=== PATIENT | female | born 1940 | race African-American/Black ===

== ENCOUNTER 2016-08-16 17:42 | Inpatient (IN) | payer OTHER ==
[2016-08-16] MEDS ORDERED: LOVENOX SUBQ SCH (18:15)
[2016-08-16] MEDS ORDERED: HUMULIN R IV ONE (18:24)
[2016-08-16] MEDS ORDERED: NS 1,000 ML IV SCH (18:30)
[2016-08-16 18:37] LABS: ALLEN TEST NO; BE -24.3 mmoll (-3.0-3.0); BLOOD TYPE ARTERIAL; DRAW SITE L BRACHIAL; METHB 1.8 % (0.0-1.5); O2(CT) 15.7 mL/dL (15.0-23.0); PO2(98.6) 239 mmHg (60-100); SAMPLE BLOOD; SAO2 100.1 % (95.0-100.0); THB 11.1 g/dL (11.5-17.4)
[2016-08-16 18:39] LABS: pH(98.6) 7.03 (7.35-7.45)
[2016-08-16 18:40] LABS: MODALITY VENTIMASK; PCO2(98.6) 18 mmHg (35-45)
[2016-08-16 19:00] LABS: BASO% 0.1 % (0.0-0.8); HEMATOCRIT 37.1 % (37.0-47.0); IMM GRAN# 0.14 X1000 (0.0-0.04); IMM GRAN% 0.9 % (0.0-0.5); LYMPH# 0.95 X1000 (1.2-3.4); LYMPH% 6.1 % (20.5-51.1); MANUAL DIFF NEEDED? YES; MCH 28.6 PG (27-31); MCHC 29.6 g/dL (33-37); MCV 96.4 FL (81-99); MONO# 0.75 X1000 (0.11-0.59); MONO% 4.8 % (1.7-9.3); MPV 11.3 FL (7.4-10.4); NEUT% 88.1 % (42.2-75.2); PLT 237 X1000 (130-400); RBC 3.85 XMIL (4.2-5.4)
[2016-08-16] MEDS ORDERED: VANCOMYCIN IV PER PHARMACY MISC SCH (19:00)
[2016-08-16] MEDS ORDERED: D50W SYRINGE IV PRN (19:04)
[2016-08-16] MEDS ORDERED: ZOFRAN PO PRN (19:04)
[2016-08-16] MEDS ORDERED: SODIUM BICARBONATE 8.4% 50 MEQ in D5W 250 ML IV PRN (19:04)
[2016-08-16] MEDS ORDERED: POTASSIUM CHLORIDE 20 MEQ in NS 100 ML IV PRN (19:04)
[2016-08-16] MEDS ORDERED: NS + KCL 20 MEQ 1,000 ML IV SCH (19:04)
[2016-08-16] MEDS ORDERED: POTASSIUM CHLORIDE 40 MEQ in NS 250 ML IV PRN (19:04)
[2016-08-16] MEDS ORDERED: SODIUM BICARBONATE 8.4% 100 MEQ in D5W 500 ML IV PRN (19:04)
[2016-08-16 19:20] LABS: BANDS 16 % (0-1); LYMPHS 4 % (21-51); MONO 4 % (1-9)
[2016-08-16 19:36] LABS: ALBUMIN 3.3 g/dL (3.5-5.0); ALKALINE PHOSPHATASE 109 U/L (32-104); DIRECT BILIRUBIN < 0.20 mg/dL (0.00-0.20); GOT 56 U/L (10-30); GPT 34 U/L (10-36); TOTAL BILIRUBIN 0.23 mg/dL (0.20-1.00); TOTAL PROTEIN 5.9 g/dL (6.3-8.3)
[2016-08-16 19:39] LABS: ALBUMIN 3.2 g/dL (3.5-5.0); MAGNESIUM 3.4 mg/dL (1.5-2.7); POTASSIUM 3.9 mmol/L (3.5-5.1); TOTAL BILIRUBIN 0.22 mg/dL (0.20-1.00); TOTAL PROTEIN 6.1 g/dL (6.3-8.3)
[2016-08-16] MEDS: LOVENOX SUBQ SCH (19:44)
[2016-08-16] MEDS: NS 1,000 ML IV SCH ×3 (19:46→21:34)
[2016-08-16] MEDS: HUMULIN R 100 UNIT in NS 99 ML IV SCH (19:46)
[2016-08-16] MEDS: PROTONIX IV SCH (19:52)
[2016-08-16] MEDS: SODIUM CHLORIDE 0.9% INJ SCH (19:52)
[2016-08-16] MEDS: 1/2 NS 1,000 ML IV SCH (19:53)
--- NOTE | 2016-08-16 20:12 | HISTORY AND PHYSICAL ---
PRIMARY CARE PHYSICIAN: Rosie Ferguson MD PRESENTING COMPLAINT: Altered mental status. HISTORY OF PRESENTING COMPLAINT: Ms. Pabon is a 76-year-old female with a history of diabetes, hypertension, dyslipidemia, questionable heart attack in the past who was transferred from [facility] to [facility] after she presented over there with altered mentation. According to the daughter, she tried multiple times to reach her mom today, but it was futile, so she went to the house to look for her at about 2 p.m. today. Upon arrival she saw her on the ground and she was unresponsive, but she had a gurgling sound in her throat. According to her, one of the eyes was open, the other one was closed and the patient would not respond to her so she called 911. The patient was sent to [facility] where she was found to have very high sugar. They tried to resuscitate her with fluids and the family requested that they transfer her to [facility] for higher care. Upon talking to the daughter, she said recently the mother has not been very consistent with her medications. PAST MEDICAL HISTORY: 1. Diabetes mellitus. 2. Hypertension. 3. Previous questionable NM. 4. Cardiomegaly. 5. Right lymphedema. MEDICATIONS AT HOME: The daughter is not 100% sure. She will bring the list. ALLERGIES: Questionable to penicillins. PAST SURGICAL HISTORY: 1. Positive for right breast, total hysterectomy with lymph node resection. 2. Hysterectomy. 3. Right knee surgery. FAMILY HISTORY: Positive for diabetes, hypertension. SOCIAL HISTORY: Patient lives by herself. Pretty functional until all this happened. Denies any smoking or alcohol. PHYSICAL EXAMINATION: VITAL SIGNS: We do not have any charted yet, but on the monitor, the blood pressure was about 140/110. Pulse of 84. Respiration was 24. Temperature not yet known. GENERAL: Ms. Pabon is a 76-year-old female. She was in bed. Seems to be in mild distress. HEENT: Mucosa is extremely dry. Anicteric and acyanotic. NECK: Supple. No JVD. Air entry is bilaterally reduced. A few bibasilar crepitations. Regular rate and rhythm. No murmurs, no rubs. No gallops. ABDOMEN: Soft. No hepatosplenomegaly. Bowel sounds were present. There is an old infraumbilical surgical scar. EXTREMITIES: No pedal edema. Distal pulses were present. [employer]: Patient is obtunded, but she is able to respond appropriately to painful stimuli. Continues to be nonverbal. Reflexes seem to be okay. LABORATORY DATA: We are still pending the labs from here. So far the pH is 7.3. PCO2 is 18. PaO2 is 239. This is on Ventimask at FiO2 of 50%. Briefly, the labs from the other facility shows WBC of about 16, hemoglobin of 15. Platelet was 237,000. Sodium was about 139, potassium was 5.9. There was a high anion gap acidosis. An EKG that we did over here shows normal sinus rhythm with tall complexes in the lateral leads with some T-wave inversion consistent with probably left ventricle hypertrophy. ASSESSMENT: Ms. Pabon is a 76-year-old female who was found by her daughter on the floor after multiple attempts to reach her on the phone, was sent to [facility], was found to have extremely elevated blood glucose and was in diabetic ketoacidosis. Upon family request was transferred here for higher care. ASSESSMENT: 1. Altered mental status secondary to metabolic encephalopathy. 2. Diabetic ketoacidosis. 3. Severe dehydration. 4. High anion gap metabolic acidosis likely due to diabetic ketoacidosis. 5. Hypertension. 6. Dyslipidemia. 7. Diabetic ophthalmopathy (retinopathy). 8. Morbid obesity. PLAN: 1. We are going to continue the patient in the ICU. Continue with the diabetic ketoacidosis protocol. We will do blood culture and urine culture. The report from [facility] was the computed tomography scan of the head which was done was unremarkable for anything acute. We would therefore not repeat it. However, if patient mentation does not improve after all the electrolytes and metabolic derangement have been corrected, we will go ahead and rescan the brain. 2. We will do blood cultures and urine cultures. For now, I would cover the patient with broad- spectrum antibiotics, at least for a few days until we know what is going on otherwise. 3. We will use Lovenox for deep venous thrombosis prophylaxis, and we will also use pantoprazole for gastrointestinal prophylaxis. 4. The patient's blood pressure was a little high. We would use hydralazine 10 mg IV q.6 p.r.n. for blood pressure control until we are able to utilize the enteral route. I have discussed this plan entirely with the family member, the daughter who was there as well as the other sister of the patient who was there. We spoke briefly on resuscitation status. At this point, the daughter wants everything to be done, including intubation and chest compression. Until further discussion is held with them, patient continues to be full code. MTDD
[2016-08-16 20:20] LABS: URINE MICRO REVIEW NEEDED? NO; URINE SOURCE CATH
[2016-08-16 20:23] LABS: BILIRUBIN URINE NEGATIVE (NEGATIVE); BLOOD URINE LARGE (NEGATIVE); COLOR STRAW; GLUCOSE URINE >1000 mg/dL (NEGATIVE); LEUKOCYTES URINE NEGATIVE (NEGATIVE); NITRITE URINE NEGATIVE (NEGATIVE); PROTEIN URINE 30 mg/dL (NEGATIVE); TURBIDITY URINE CLEAR (CLEAR); UR EPITHELIAL CELLS <10 /HPF (<10); URINE BACTERIA NEGATIVE /HPF; URINE RBC <10 /HPF (<10); URINE WBC <10 /HPF (<10); UROBILINOGEN URINE NORMAL (NORMAL)
[2016-08-16] MEDS: D5 NS + KCL 20 MEQ 1,000 ML IV SCH (20:24)
[2016-08-16] MEDS: D5 NS 1,000 ML IV SCH (20:25)
[2016-08-16] MEDS ORDERED: ZOSYN 2.25 GM/NS 50 ML IV SCH (21:00)
[2016-08-16] MEDS: LEVAQUIN 250 MG/D5W 50 ML IV SCH (21:07)
[2016-08-16] MEDS: MONISTAT-7 VAG CREAM VAG SCH (21:11)
[2016-08-16 21:36] LABS: CALCIUM 8.9 mg/dL (8.8-10.2); MAGNESIUM 3.1 mg/dL (1.5-2.7); POTASSIUM 3.2 mmol/L (3.5-5.1)
[2016-08-16] MEDS: MYCAMINE 100 MG in NS 100 ML IV SCH (22:13)
[2016-08-16] MEDS ORDERED: VANCOMYCIN 1.5 GM in NS 250 ML IV ONE (23:00)
[2016-08-17] MEDS: HUMULIN R 100 UNIT in NS 99 ML IV SCH ×3 (01:09→08:37)
[2016-08-17 02:33] LABS: CALCIUM 9.4 mg/dL (8.8-10.2); POTASSIUM 3.3 mmol/L (3.5-5.1)
[2016-08-17 02:59] LABS: ALLEN TEST YES; BE -12.8 mmoll (-3.0-3.0); BLOOD TYPE ARTERIAL; DRAW SITE R RADIAL; METHB 1.6 % (0.0-1.5); O2(CT) 15.4 mL/dL (15.0-23.0); PCO2(98.6) 34 mmHg (35-45); PO2(98.6) 195 mmHg (60-100); SAMPLE BLOOD; SAO2 99.9 % (95.0-100.0); pH(98.6) 7.22 (7.35-7.45)
[2016-08-17 03:00] LABS: MODALITY VENTIMASK
[2016-08-17] MEDS: D5 NS + KCL 20 MEQ 1,000 ML IV SCH ×3 (04:03→18:36)
[2016-08-17] MEDS: D5 NS 1,000 ML IV SCH ×3 (04:03→18:37)
[2016-08-17] MEDS: 1/2 NS 1,000 ML IV SCH ×3 (04:03→18:36)
--- NOTE | 2016-08-17 05:40 | EKG Report ---
Test Performed on : 08/16/2016 7:25:00 PM Test Reason : dka Blood Pressure : / mmHG Vent. Rate : 091 BPM Atrial Rate : 091 BPM P-R Int : 128 ms QRS Dur : 082 ms QT Int : 396 ms P-R-T Axes : 000 014 247 degrees QTc Int : 487 ms Sinus rhythm. with occasional premature ventricular complexes. ST & T wave abnormality, consider inferolateral ischemia Abnormal ECG When compared with ECG of 16-MAY-2016 17:16, premature ventricular complexes. are now present Inverted T waves have replaced nonspecific T wave abnormality in Inferior leads Inverted T waves have replaced nonspecific T wave abnormality in Lateral leads QT has lengthened Confirmed by Henrik Gooden MD ([id number]) on 08/17/2016 10:22:28 AM
[2016-08-17] MEDS ORDERED: 1/2 NS 1,000 ML IV SCH (06:15)
[2016-08-17 07:19] LABS: HDL 25 mg/dL (45-65); LDL 129 mg/dL; TRIGLYCERIDES 225 mg/dL (35-135); VLDL 45 mg/dL
[2016-08-17 07:24] LABS: HEMOGLOBIN A1C 11.9 % (4.8-6.0)
--- NOTE | 2016-08-17 07:33 | Diag Imaging Result Document ---
PROCEDURE NAME: CHEST-PORTABLE - 08/16/2016 PORTABLE UPRIGHT CHEST: COMPARISON: Compared to 05/16/2016. FINDINGS: No change in the left-sided [id number]. Heart remains prominent. The vessels are not distended. The lungs are well expanded. There are scattered granuloma. No pleural effusions identified. No consolidation. IMPRESSION: Stable chest. [facility]
[2016-08-17 08:24] LABS: CALCIUM 9.8 mg/dL (8.8-10.2); MAGNESIUM 2.7 mg/dL (1.5-2.7); POTASSIUM 3.8 mmol/L (3.5-5.1)
[2016-08-17] MEDS ORDERED: SODIUM PHOSPHATE 30 MMOL in D5W 250 ML IV PRN (08:36)
[2016-08-17] MEDS ORDERED: MAXIPIME 1 GM/NS 50 ML IV ONE (08:49)
[2016-08-17] MEDS ORDERED: POTASSIUM CHLORIDE 20 MEQ in 1/2 NS 1,000 ML IV SCH (08:49)
[2016-08-17] MEDS ORDERED: 1/2 NS ONE (09:09)
[2016-08-17] MEDS ORDERED: D5 ONE (09:09)
[2016-08-17 09:12] LABS: CALCIUM 9.6 mg/dL (8.8-10.2); POTASSIUM 3.8 mmol/L (3.5-5.1)
[2016-08-17] MEDS: D5 1/2 NS 1,000 ML IV SCH ×4 (10:00→22:19)
--- NOTE | 2016-08-17 10:17 | Diag Imaging Result Document ---
PROCEDURE NAME: ABDOMEN/PELVIS W/O CONTRAST - 08/17/2016 CT ABDOMEN AND PELVIS: A CT dose reduction protocol was used. COMPARISON: 12/20/2012. FINDINGS: There is substantial dependent atelectasis in the lung bases. There are also scattered calcified granulomas. 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 No pericardial effusion. The heterogeneous density partially cystic mass in the right upper quadrant has enlarged since prior. This now measures 5.9 x 7.6 cm in AP and lateral dimensions, previously measuring about 4.9 x 5.6. This is adjacent to the pancreatic head just anterior to the descending duodenum. Stable cholecystectomy changes. No dilation of the biliary collecting ducts or main pancreatic duct. Matute catheter in the urinary bladder. Rectum demonstrates some mild stool impaction. There are only a few diverticula of the sigmoid colon. No bowel obstruction or inflammation. There is some nonspecific retroperitoneal fluid, particularly at the left anterior pararenal space. No renal stones or urinary obstruction. Severe degenerative changes of the spine and pelvis. No acute or suspicious bony lesions. IMPRESSION: 1. Enlarging right upper quadrant retroperitoneal mass. This remains indeterminate. 2. Mild rectal stool impaction. Diverticulosis coli. 3. Trace retroperitoneal free fluid about the left kidney, nonspecific. [facility]
--- NOTE | 2016-08-17 11:10 | PROGRESS NOTE ---
DATE: 08/17/2016 SUBJECTIVE: Today, Ms. Pabon looks a little bit better than yesterday. She is focalizing more. Still continues to be obtunded. She keeps groaning but no sensible speech. PHYSICAL EXAMINATION: Vital Signs: Her blood pressure is 138/80, pulse of 107 , respirations 12, temperature is 97.7 degrees. General Examination: Ms. Pabon is a 76-year-old , female. She was in bed. She did not seem to be in any distress. HEENT: Mucosa continues to be dry. Anicteric and acyanotic. Neck: Supple. Lungs: Good air entry bilaterally. No crepitations. No rhonchi. Cardiovascular: Regular rate and rhythm. Chest: There is a port on the left upper chest wall. Extremities: No pedal edema. Abdomen: Soft. The patient groans when you touch the abdomen. Not quite sure or if she is hurting. Neurologic: Patient is alert but continues to be confused. She is nonverbal. She makes some non- comprehensive sounds. She is able to move all her extremities upon painful stimuli. She is also able to move her head toward the direction of where her name comes from. LABORATORY DATA: No WBC. Chemistry: Sodium is 158, potassium is 3.8, chloride is 125, bicarb is 15, gap of 18, BUN is 58, creatinine is 3.6. This is improved from yesterday which was 4.2. Phosphorus is 0.9. Magnesium is 2.7. A1c is 11.9. A blood culture so far is growing a gram-negative rods in the blood. ASSESSMENT: 1. Diabetic ketoacidosis. 2. Severe dehydration. 3. High anion gap metabolic acidosis due to diabetic ketoacidosis. 4. Acute kidney injury. 5. Sepsis of unclear source, likely from 6. Gram-negative loni bacteremia. 7. Diabetic ophthalmopathy. 8. Morbid obesity. 9. Altered mental status secondary to metabolic encephalopathy. 10.HTN/ DLD 11. Suspected genital fungal infection. 12. Hypophosphatemia. 13. Hypernatremia. PLAN: 1. We are going to replace all the electrolytes. We will going to add potassium to her baseline fluids. We will switch the fluid to half saline with 20 mg of potassium to go 250 mL per hour. 2. We will continue the DKA protocol. 3. The patient seems to have some abdominal pain. However, we are not quite sure because she is not able to voice. When you palpate the abdomen, she seems to be hurting. Her creatinine is high so we will not be able to scan with contrast medium but we would do a simple CT scan of the abdomen to make sure that there is not any gross abnormality than needs surgical intervention. 4. We will add also cefepime to her antibiotics. So far, we do not see any gram -positive so we will discontinue the vancomycin. We will continue the patient on the levofloxacin, cefepime, and the micafungin. 5. In general, patient seems to be doing a little better. We will review her in the afternoon to see if we need to make any further changes. 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 I consulted GI for EUS evaluation but Dr Higgins called and said we dont do EUS here. When patient is more stable, she may need to follow up with this in [place] or [place] b- Worsening Kidney functions: will do urine studies order renal us consult Nephrology to evaluate. Called to check on patient at 22:30 Was told patient continue to very agitated and breathing a rate of about 30resp per minute will do Chest Xray to rule fluid overload Will do Ct brain without contrast to r/o acute laminator disease. Critical time spent is 65[facility]
[2016-08-17] MEDS ORDERED: BLISTEX MEDICATED BERRY LIP BALM TOP PRN (12:10)
[2016-08-17 14:03] LABS: CALCIUM 9.3 mg/dL (8.8-10.2); MAGNESIUM 2.4 mg/dL (1.5-2.7); POTASSIUM 3.9 mmol/L (3.5-5.1)
[2016-08-17] MEDS: APRESOLINE IV PRN (15:09)
[2016-08-17] MEDS ORDERED: MORPHINE IV PRN (16:13)
[2016-08-17] MEDS ORDERED: ATIVAN IV ONE ×2 (16:13→22:59)
--- NOTE | 2016-08-17 16:18 | Diag Imaging Result Document ---
PROCEDURE NAME: US RENAL 2 (RETROPER) COMPLETE - 08/17/2016 RENAL ULTRASOUND: COMPARISON: CT abdomen and pelvis earlier, 08/17/2016. FINDINGS: The exam is extremely challenging due to the patient's large body size and lack of cooperation. The kidneys and urinary bladder are normal. There is no hydronephrosis. The right kidney measures 10.2 x 5 x 5.2 cm. The left kidney measures 8.7 x 4.5 x 6.1 cm. IMPRESSION: Negative exam.
[2016-08-17 17:10] LABS: CALCIUM 9.1 mg/dL (8.8-10.2); POTASSIUM 3.7 mmol/L (3.5-5.1)
[2016-08-17] MEDS: 1/2 NS + KCL 20 MEQ 1,000 ML IV SCH ×2 (17:28→21:47)
[2016-08-17] MEDS: LOVENOX SUBQ SCH (18:41)
[2016-08-17] MEDS: PROTONIX IV SCH (18:43)
[2016-08-17] MEDS: SODIUM CHLORIDE 0.9% INJ SCH (18:43)
[2016-08-17] MEDS: TYLENOL PR PRN (19:52)
[2016-08-17] MEDS: MORPHINE IV PRN (20:51)
[2016-08-17] MEDS: MAXIPIME 0.5 GM in NS 50 ML IV SCH (20:52)
[2016-08-17] MEDS: LEVAQUIN 250 MG/D5W 50 ML IV SCH (20:54)
[2016-08-17 21:26] LABS: CALCIUM 9.2 mg/dL (8.8-10.2); POTASSIUM 4.1 mmol/L (3.5-5.1)
[2016-08-17] MEDS: MONISTAT-7 VAG CREAM VAG SCH (21:38)
[2016-08-17 21:48] LABS: ALLEN TEST YES; BE -11.2 mmoll (-3.0-3.0); BLOOD TYPE ARTERIAL; DRAW SITE L RADIAL; METHB 1.6 % (0.0-1.5); MODALITY CANNULA; O2(CT) 15.4 mL/dL (15.0-23.0); PCO2(98.6) 22 mmHg (35-45); PO2(98.6) 115 mmHg (60-100); SAMPLE BLOOD; SAO2 99.6 % (95.0-100.0); THB 11.3 g/dL (11.5-17.4); pH(98.6) 7.36 (7.35-7.45)
[2016-08-17] MEDS: MYCAMINE 100 MG in NS 100 ML IV SCH (22:19)
--- NOTE | 2016-08-18 00:48 | Diag Imaging Result Document ---
PROCEDURE NAME: HEAD W/O CONTRAST - 08/17/2016 STUDY: CT brain without. PROTOCOL: Dose reduction technique. COMPARISON: Compared to 08/16/2016. There is motion on the current exam. No parenchymal hemorrhage. No epidural or subdural hematoma. No subarachnoid hemorrhage. There is diffuse atrophy. No hydrocephalus. No mass identified on this noncontrasted exam. There is mucus in the right sphenoid and left maxillary sinuses. No sinus opacification. IMPRESSION: 1. No hemorrhage. 2. Atrophy with chronic microvascular ischemic changes. No definite change compared to the prior exam. An MRI may be beneficial. A preliminary report was given at 11:57 p.m.
[2016-08-18] MEDS: 1/2 NS + KCL 20 MEQ 1,000 ML IV SCH ×4 (02:11→12:58)
[2016-08-18] MEDS: D5 NS + KCL 20 MEQ 1,000 ML IV SCH (03:51)
[2016-08-18] MEDS: 1/2 NS 1,000 ML IV SCH (03:51)
[2016-08-18] MEDS: D5 1/2 NS 1,000 ML IV SCH ×2 (03:51→06:15)
[2016-08-18] MEDS: D5 NS 1,000 ML IV SCH (03:52)
[2016-08-18 06:13] LABS: CALCIUM 8.9 mg/dL (8.8-10.2); MAGNESIUM 2.1 mg/dL (1.5-2.7); POTASSIUM 5.2 mmol/L (3.5-5.1)
[2016-08-18] MEDS: HUMULIN R 100 UNIT in NS 99 ML IV SCH (06:23)
[2016-08-18 06:27] LABS: BASO% 0.1 % (0.0-0.8); EOS# 0.01 X1000 (0.0-0.7); EOS% 0.1 % (0.0-10.0); HEMATOCRIT 32.7 % (37.0-47.0); HEMOGLOBIN 10.9 g/dL (12.0-16.0); IMM GRAN# 0.11 X1000 (0.0-0.04); IMM GRAN% 0.7 % (0.0-0.5); LYMPH# 0.94 X1000 (1.2-3.4); LYMPH% 6.3 % (20.5-51.1); MANUAL DIFF NEEDED? YES; MCH 28.3 PG (27-31); MCHC 33.3 g/dL (33-37); MCV 84.9 FL (81-99); MONO# 1.12 X1000 (0.11-0.59); MONO% 7.6 % (1.7-9.3); NEUT% 85.2 % (42.2-75.2); PLT 91 X1000 (130-400); RBC 3.85 XMIL (4.2-5.4)
[2016-08-18 07:28] LABS: BANDS 8 % (0-1); LYMPHS 10 % (21-51); MONO 6 % (1-9)
[2016-08-18] MEDS: MAXIPIME 0.5 GM in NS 50 ML IV SCH ×2 (08:17→21:05)
--- NOTE | 2016-08-18 08:24 | Diag Imaging Result Document ---
PROCEDURE NAME: CHEST-1 VIEW - 08/17/2016 AP PORTABLE CHEST: TIME: 2250 hours. FINDINGS: There is cardiomegaly. There is an apparent small right pleural effusion. There may be interstitial pulmonary edema. There is some motion artifact. Otherwise, compared to 08/16/2016 there has been no significant change. IMPRESSION: 1. Questionable pulmonary edema. 2. Cardiomegaly and small right pleural effusion.
[2016-08-18] MEDS: SODIUM BICARBONATE 8.4% 100 MEQ in STERILE WATER INJ. 1,000 ML IV SCH ×2 (08:31→19:00)
[2016-08-18] MEDS ORDERED: D5 NS + KCL 20 MEQ 1,000 ML IV SCH (09:00)
[2016-08-18] MEDS: MORPHINE IV PRN ×3 (09:20→17:12)
--- NOTE | 2016-08-18 09:51 | Diag Imaging Result Document ---
PROCEDURE NAME: CHEST-1 VIEW - 08/18/2016 PORTABLE CHEST: TIME: 0925 hours. FINDINGS: There is cardiomegaly. There is a Port-A-Cath on the left with its tip in the superior vena cava. The appearance of the chest has not changed significantly since 08/17/2016. IMPRESSION: Cardiomegaly.
[2016-08-18 10:54] LABS: CALCIUM 8.7 mg/dL (8.8-10.2); POTASSIUM 5.1 mmol/L (3.5-5.1)
--- NOTE | 2016-08-18 11:31 | PROGRESS NOTE ---
DATE: 08/18/2016 SUBJECTIVE: Ms. Pabon with tachypnea, rapid respirations. OBJECTIVE: Vital signs: Remains afebrile, temp 98.1 degrees, pulse 117, respirations 36, blood pressure 117/78. Lungs: Clear in all lung bay. Cardiovascular: Regular rhythm and rate without murmur or S3. Abdomen: Soft. Skin: Warm and dry. Intake and output: Good urine output, about 600 mL. LAB: From this morning, white count 14,830; yesterday it was 15,000. Hematocrit 32, platelet count 91,000. Sodium 150, potassium 5.2, chloride of 122, CO2 is 14.1, BUN 62, creatinine 3.9. Blood sugars 223, 246, 250, 253, and . ASSESSMENT AND PLAN: 1. Continue to replace electrolytes and continue fluids. Start a bicarb drip. Underlying diabetic ketoacidosis. Still acidotic with compensatory respiratory alkalosis and tachypnea. 2. Abdominal pain. No complaints at this time and it does not appear distended. We did a CT of the abdomen and pelvis yesterday, enlarging right upper quadrant retroperitoneal mass, remains indeterminate. Trace retroperitoneal free air around the left kidney, nonspecific. Mild rectal stool impaction. Diverticulosis coli appreciated. Renal ultrasound, negative exam. CT of her head which was done yesterday, no hemorrhage, atrophy and chronic microvascular ischemic changes note. 3. Review of her admission H P, this is a 76-year-old female with a history diabetes, hypertension, hyperlipidemia, and questionable heart attack in the past, who was transferred from [facility]. She presented there with altered mentation. According to her daughter she tried multiple times to reach her mom. Upon arrival, she was on the ground unresponsive, gurgling sounds. Found to have high sugar. We will need to probably workup this retroperitoneal mass seen on CT.
[2016-08-18 11:51] LABS: UR CREAT RANDOM 143.3 mg/dL (11-20)
[2016-08-18 11:54] LABS: UR PROT RANDOM 156.7 mg/dL
--- NOTE | 2016-08-18 13:41 | CONSULTATION ---
DATE OF CONSULTATION: 08/18/2016 REASON FOR ADMISSION: Altered mental status. REASON FOR CONSULT: Acute kidney injury with acidosis. HISTORY OF PRESENT ILLNESS: Ms Pabon is a 76-year-old female with a history of diabetes mellitus type 2. Patient was admitted to [facility] on with altered mental status and was found to be in DKA. Her history is that her daughter had attempted to check on her on Wednesday and was unable to get her so she had gone to her home Wednesday afternoon at 2 p.m. and upon arrival found her on the ground unresponsive. She was making gurgling sounds. Her eyes were open. She was nonverbal. Daughter called 911 and she was subsequently transported to [facility] where she was found to be in DKA. She was resuscitated with IV fluids. Family then requests she be transferred to [facility] for higher care. Patient is unable to give review of systems. She makes eye contact. She is able to follow simple commands with squeezing of my hands. Otherwise most information is obtained per chart. She does not appear in any discomfort. PAST MEDICAL HISTORY: On the chart is noted diabetes mellitus type 2, hypertension, questionable RI, cardiomegaly, right lymphedema and is noted that she has had a baseline creatinine of 1.2-1.6. PREVIOUS SURGICAL HISTORY: Positive for right breast resection with lymph node along with a total hysterectomy, right knee surgery. SOCIAL HISTORY: She lives alone. She has family who are attentive to her care. It is noted that she does not smoke or drink. FAMILY HISTORY: Positive for diabetes and hypertension. ALLERGIES: LISTED PENICILLIN. HOME MEDICATIONS: On the chart are Ziac, aspirin, Januvia, Glucotrol, omeprazole, Toprol-XL, Synthroid, pioglitazone, glipizide calcium acetate with magnesium, Glucophage, Colace, Lortab, MiraLAX, anastrozole and Dulcolax. REVIEW OF SYSTEMS: Unable to obtain per patient being lethargic. Best obtained from chart as presented. VITAL SIGNS: Most recent vital signs temperature 98.1 degrees, blood pressure 117/77, heart rate 114, respirations are 36. She is currently on 3 L nasal cannula. Last recorded saturation is 100% on the monitor. She has had 6595 in. She has had 605 out. She is 10 L positive in the last 72 hours. LABS: Sodium 150, potassium 5.2, chloride is 122, CO2 14, BUN 63, creatinine 3.9, glucose 223. Her anion gap is 14, calcium is 8.9, phosphorus 1.8, magnesium 2.1. White count 14.83, hemoglobin 10.9, hematocrit 32.7 with a platelet count of 91,000. Urine eosinophils are negative. Urine sodium is [address] of the head showed no acute changes. For culture indicates gram- negative rods with E. coli. Renal ultrasound indicates the right kidney measuring 10.2, left measuring 8.7. Chest x-ray completed on the 2nd shows questionable pulmonary edema with cardiomegaly and small right pleural effusion. PHYSICAL EXAMINATION: General: This is a 76-year-old female. She is resting in bed. She appears chronically ill. She is in mild distress with respiratory difficulties. Respirations are tachypneic at 36. Skin: Warm and dry. HEENT: Normocephalic , atraumatic. Conjunctiva is pale. She has KWADWO. Mucous membranes are moist. Neck: Supple. Positive JVD. Cardiovascular: She is regular rate and rhythm. Tachycardic on the monitor. Lungs: Diminished breath sounds bilateral. Unable to determine extra lung sounds due to body habitus. Clear anterior. Remains on O2. Abdomen: Obese, soft, nontender. Positive bowel sounds. Genitourinary: Patient has Matute catheter in place. Adequate urine out. Extremities: Trace pretibial edema. No clubbing or cyanosis. Neurological: Patient is lethargic. She is able to squeeze hand on command. ASSESSMENT AND PLAN: 1. Acute kidney injury. Patient's baseline creatinine appears to be 1.2-1.6. Her creatinine is up to 3.9 at this time though it has slowly responded to fluids yesterday. Ultrasound is negative. We will check urine electrolytes and continue to monitor. Through the day today her urine output has been very low. Persistent acidosis with Kussmaul breathing. No hypoxia by ABG yesterday or sats today. I counseled the family that she has AYDIN from [facility]N without recovery. She will likely need dialysis tomorrow. Se discussed access placement and the dialysis procedure in general terms. The family (granddaughter?) is familiar with these things. rg 2. Electrolytes. Patient has hypernatremia with mild hyperkalemia. She currently has a potassium drip going as per protocol for her diabetic ketoacidosis and we will continue to monitor with that no changes. We will change her base fluid to add free water. 3. Acid-base balance. Remains acidotic secondary to diabetic ketoacidosis though AG is minimal. We will check her acetone level again todaya dn repeat her ABG. We will add a liter of sterile water with 2 amps of sodium bicarbonate to run at 100 mL an hour. 4. Anemia. This remains low but stable. 5. Positive urinary tract infection. We will change patient's Levaquin to renal dose. I would like to thank you for allowing us to follow with this patient. Seen, data reviewed, discussed with Roverto Castellano on 08/18/16. I agree with the above assessment and plan of care. rg Dictated by NETTIE Bah for Sim Vela MD [facility]
[2016-08-18 14:30] LABS: CALCIUM 8.7 mg/dL (8.8-10.2); POTASSIUM 4.4 mmol/L (3.5-5.1)
[2016-08-18 17:10] LABS: ALLEN TEST YES; BE -12.6 mmoll (-3.0-3.0); BLOOD TYPE ARTERIAL; DRAW SITE R RADIAL; METHB 1.8 % (0.0-1.5); PCO2(98.6) 26 mmHg (35-45); PO2(98.6) 131 mmHg (60-100); SAMPLE BLOOD; SAO2 99.1 % (95.0-100.0); pH(98.6) 7.29 (7.35-7.45)
[2016-08-18 17:12] LABS: MODALITY CANNULA
[2016-08-18] MEDS: APRESOLINE IV PRN (17:12)
[2016-08-18] MEDS ORDERED: LASIX IV ONE ×2 (18:31→22:52)
[2016-08-18] MEDS ORDERED: LASIX ONE (18:36)
--- NOTE | 2016-08-18 19:17 | PROGRESS NOTE ---
DATE: 08/18/2016 SUBJECTIVE: Still with tachypnea. Respiratory pattern is not as deep but she has had small respirations for most of the day. To recall she has a history of diabetes, hypertension, dyslipidemia, questionable heart attack in the past, who presented with altered mental status. Transferred from [facility] after presentation with altered mental status. According to the daughter she had tried often times to reach her mom during the day of admission. They were found her on the ground unresponsive with a gurgling sound in her throat. Eyes were open. They called 911 and she was brought here. She was covered with broad-spectrum antibiotics. Chest x-ray this morning shows cardiomegaly, Port-A-Cath on the left with tip in the superior vena cava. Her renal function is deteriorating. Dr. Vela is following acute kidney injury with acidosis. The acidosis seems to be recently repeated. Blood gases: pH of 7.29, pCO2 26, PO2 of 131. Yesterday evening it was 7.36. She is on a BiPAP. We will continue. Right now she is on 28% per orders. She is on cefepime, vancomycin and Levaquin. I am concerned about the level of acidosis. I am concerned about her respiratory dysfunction. Creatinine is 4.3 so likely she will need dialysis tomorrow. We will go ahead and consult Pulmonary. We will try a little bit of Lasix tonight but likely will need dialysis tomorrow for volume status. Concerned about the underlying cause of acidosis. I think we need to consider perforated viscus, consider infection. We are covering with broad-spectrum antibiotics right now. It is not apparent what the cause of this acidosis is.
[2016-08-18 19:43] LABS: CALCIUM 8.7 mg/dL (8.8-10.2); POTASSIUM 4.8 mmol/L (3.5-5.1)
[2016-08-18] MEDS: LOVENOX SUBQ SCH (20:05)
[2016-08-18] MEDS: PROTONIX IV SCH (20:05)
[2016-08-18] MEDS: MYCAMINE 100 MG in NS 100 ML IV SCH (21:05)
[2016-08-18] MEDS: MONISTAT-7 VAG CREAM VAG SCH (21:18)
[2016-08-18 22:22] LABS: CALCIUM 8.4 mg/dL (8.8-10.2); MAGNESIUM 1.9 mg/dL (1.5-2.7); POTASSIUM 4.4 mmol/L (3.5-5.1)
[2016-08-18] MEDS ORDERED: LASIX 200 MG in NS 25 ML IV ONE (23:00)
[2016-08-19] MEDS: MORPHINE IV PRN ×2 (00:27→14:52)
[2016-08-19] MEDS: HUMULIN R 100 UNIT in NS 99 ML IV SCH (04:29)
[2016-08-19] MEDS: SODIUM BICARBONATE 8.4% 100 MEQ in STERILE WATER INJ. 1,000 ML IV SCH ×2 (05:00→16:18)
[2016-08-19 05:06] LABS: ALLEN TEST YES; BE -9.8 mmoll (-3.0-3.0); BLOOD TYPE ARTERIAL; DRAW SITE R RADIAL; PCO2(98.6) 29 mmHg (35-45); PO2(98.6) 168 mmHg (60-100); SAMPLE BLOOD; pH(98.6) 7.32 (7.35-7.45)
[2016-08-19 05:07] LABS: MODALITY VENTIMASK
[2016-08-19 05:22] LABS: BASO% 0.2 % (0.0-0.8); EOS# 0.03 X1000 (0.0-0.7); EOS% 0.2 % (0.0-10.0); HEMATOCRIT 29.7 % (37.0-47.0); HEMOGLOBIN 9.9 g/dL (12.0-16.0); IMM GRAN% 0.8 % (0.0-0.5); LYMPH# 1.34 X1000 (1.2-3.4); LYMPH% 10.5 % (20.5-51.1); MANUAL DIFF NEEDED? YES; MCHC 33.3 g/dL (33-37); MCV 83.9 FL (81-99); MONO# 0.87 X1000 (0.11-0.59); MONO% 6.8 % (1.7-9.3); MPV 11.8 FL (7.4-10.4); NEUT% 81.5 % (42.2-75.2); PLT 68 X1000 (130-400); RBC 3.54 XMIL (4.2-5.4)
[2016-08-19 05:30] LABS: BANDS 6 % (0-1); LYMPHS 10 % (21-51); MONO 6 % (1-9)
[2016-08-19 05:38] LABS: CALCIUM 8.2 mg/dL (8.8-10.2); POTASSIUM 4.7 mmol/L (3.5-5.1)
[2016-08-19 05:57] LABS: MAGNESIUM 1.8 mg/dL (1.5-2.7)
--- NOTE | 2016-08-19 07:37 | Diag Imaging Result Document ---
PROCEDURE NAME: CHEST-1 VIEW - 08/19/2016 SINGLE FRONTAL RADIOGRAPH OF THE CHEST: COMPARISON: 08/18/2016. FINDINGS: Left chest port is stable. Inspiration is suboptimal. There is suggestion of small bilateral effusions and bibasilar atelectasis and/or infiltrate, more prominent on the left. This is stable. Increased interstitial markings suggesting edema are stable. Cardiac silhouette is unchanged. No new consolidations are identified. IMPRESSION: Stable chest.
[2016-08-19] MEDS: MAXIPIME 0.5 GM in NS 50 ML IV SCH ×2 (08:52→20:32)
--- NOTE | 2016-08-19 11:36 | PROGRESS NOTE ---
DATE: 08/19/2016 TIME SEEN: 0830. SUBJECTIVE: Ms. Pabon is currently resting in bed. She appears chronically ill. She is in mild distress secondary to increased respiratory effort, though this is much improved from yesterday. She remains unresponsive but does open her eyes to verbal stimuli. OBJECTIVE: Vital signs: Her most recent vital signs, temperature 97.1 degrees , blood pressure 137/89, heart rate 116, respirations are 26. She remains on 30% Ventimask. She has had 3451 in. She has had 1110 out. She still continues to remain 10 L positive, so urine output has improved. Labs: This a.m., sodium 148, potassium 4.7, chloride is 118, CO2 16, BUN 66, creatinine 4.7, glucose 141, anion gap 14, calcium 8.2, phosphorus 2.3, magnesium 1.8. White count 12.76, hemoglobin 9.9, hematocrit 29.7, with a platelet count 68,000. ABGs, pH 7.32, CO2 29, PO2 168, bicarb 17.3 on 30% Ventimask. Blood cultures are positive for Klebsiella oxytoca. We are waiting the results of her sensitivity. Chest x-ray this a.m. indicates stable chest, suggesting small bilateral pleural effusions with bibasilar atelectasis or infiltrates have remained stable, more prominent on the left. No improvement after 280 mg of Lasix yesterday evening per chest x-ray. PHYSICAL EXAMINATION: General: This is a 76-year-old female. She is currently resting in bed. She appears chronically ill. She is in no acute distress at this time. She is resting more comfortably. Skin: Warm and dry. HEENT: Normocephalic, atraumatic. Conjunctivae pale. She has KWADWO. Mucous membranes moist. Neck: Supple. Trachea midline. She has positive JVD. Cardiovascular: Regular rate and rhythm. She continues tachycardic on the monitor. No murmur or gallop actually appreciated. Lungs: She continues with diminished breath sounds. Clear to auscultation anterior. She remains on O2. Abdomen: This is large, obese, soft, nontender. Positive bowel sounds. Genitourinary: Matute catheter remains in place. She has had an improvement in her urine output in response to the Lasix yesterday evening with 1110 out. We will continue to monitor at this time. Extremities: She continues with trace to 1+ pretibial edema. No clubbing or cyanosis. Neurological: Patient remains lethargic. She does open her eyes to verbal. Otherwise, not able to follow commands today. ASSESSMENT AND PLAN: 1. Acute kidney injury. Patient's baseline creatinine is 1.2 to 1.6. She has responded today. Her BUN and creatinine are slightly higher. Creatinine is 4.7 from 3.9. She continues on sodium bicarbonate, sterile water with 2 amps at 100 mL an hour. We will reassess the patient's labs in the a.m. We have spoken to the family in regards with possible hemodialysis for fluid volume overload and her acidosis. This has actually slowly improved. Adequate urine output. We will continue to hold at this time and evaluate on a daily basis. Family states that they are acceptable to dialysis if indicated. We will also check an acetone level today. 2. Electrolytes. These remain stable. 3. Acid-base balance. Again, this is slowly improved. She continues on sodium bicarbonate and sterile water per IV fluids. 4. Anemia. This remains low but stable. 5. Positive urinary tract infection. Patient remains on renal dosed antibiotics. 6. Diabetic ketoacidosis. This continues to be followed and monitored by the primary care team. We will go ahead and order an acetone level today. We will not be able to close her anion gap as indicated secondary to her DKA and her kidney level, but we will check her acetone. If this remains in a normal basis then we will decrease the amount of blood draws that she is receiving. I would like to thank you for allowing us to follow with this patient. Seen, data reviewed, discussed with Roverto Castellano on 08/19/16. I agree with the above assessment and plan of care. rg Dictated by NETTIE Bah for Sim Vela MD [facility]
--- NOTE | 2016-08-19 12:03 | CONSULTATION ---
DATE OF CONSULTATION: 08/19/2016 REFERRING PHYSICIAN: Dr. Acosta. CHIEF COMPLAINT: Altered mental status. HISTORY OF PRESENT ILLNESS: This is a 76-year-old female with a past medical history of diabetes, hypertension, and dyslipidemia was transferred to [facility] with complaints of altered status. Pulmonary has been consulted secondary to patient's dyspnea and respiratory status. She is currently in the ICU on a Ventimask. Blood gas this morning reveals an acidosis with a pH of 7.32 and a CO2 of 29. Her renal function continues with climb with a BUN of 66 and a creatinine of 4.7. The patient denies any specific pain this morning. Her abdomen is soft and nondistended. She has been placed in ICU for close monitoring, evaluation and treatment. REVIEW OF SYSTEMS: A 10-point review of systems was conducted and pertinent as noted in the HPI, otherwise noncontributory. PAST MEDICAL HISTORY: As mentioned in the HPI, otherwise noncontributory. PAST SURGICAL HISTORY: Total hysterectomy, right breast surgery, right knee surgery. FAMILY HISTORY: Notable for diabetes and hypertension. SOCIAL HISTORY: The patient lives at home alone. Denies the use of tobacco, alcohol, or illicit drugs. ALLERGIES: Questionable to penicillin. ACTIVE MEDICATIONS: Tylenol, Lovenox, Apresoline, Levaquin, insulin, morphine, Zofran and Protonix. PHYSICAL EXAM: Vital Signs: Temperature 97.1, heart rate 116, respiratory rate 26. Blood pressure 136/91, oxygen saturation 99%. GENERAL: Lying in bed. Family at bedside. Mild to moderate respiratory distress noted. HEENT: Normocephalic and atraumatic. PERRL. Dry mucous membranes. Cardiovascular: Tachycardiac rate. S1, S2 present. Chest: Reduced entry. Coarse breath sounds bilaterally. Abdomen: Soft, nontender, nondistended. Bowel sounds present in all quadrants. Extremities: Positive PMS. +1 pedal edema noted. Neurologic: Alert and oriented x3. No focal deficits. LABS AND INVESTIGATIONS: WBC 12.76, RBCs 3.54, hemoglobin 9.9, hematocrit 29.7 , platelet count 68,000. Sodium 148, potassium 4.7, chloride 118, carbon dioxide 16. Anion gap 14. BUN 66, creatinine 4.7, glucose 141. Blood gas reveals a pH of 7.32, pCO2 29, PO2 of 168. Chest x-ray performed on 08/29/2016 shows suggestion of small bilateral effusions and bibasilar atelectasis and/or infiltrate. ASSESSMENT AND PLAN: This is a 76-year-old female with a past medical history mentioned in HPI who was placed in the ICU for close monitoring of her acidosis and renal function (ARF). Initially DKA considered. Nephrology on consult with recommendations. Likely start dialysis today. There is a possibility that this will improve the renal function and acidosis and improve the dyspnea. If not, discussion has been made with the patient and family about going on the ventilator and she seems to be okay with this decision. She also continues to be covered with broad-spectrum antibiotics, DVT and GI prophylaxis and supplemental oxygen. Further recommendations pending diagnostic studies. Thank you for the courtesy of this consult. Dictated by NETTIE Wade for Joao Diego MD [facility]TD[facility]
--- NOTE | 2016-08-19 14:35 | PROGRESS NOTE ---
DATE: 08/19/2016 SUBJECTIVE: Remains afebrile. OBJECTIVE: Vital signs: Remains afebrile, temperature 97.3, pulse running about 110, respirations 24, blood pressure 124/83. Lungs: Clear anterolateral. She has slowed her respirations down. Does not appear to have Kussmaul respirations at this time. Urine output was above 1000 mL. LABORATORY: Her lab from this morning: White count 12,760, hematocrit 29, platelet count 68,000. Chemistries: Sodium 148, potassium 4.7, chloride 118, bicarbonate 16, BUN 66, creatinine 4.7. Blood sugar was 141, 149, 131, 159, and 184. Chest x-ray from this morning: Left chest port is stable. Inspiration suboptimal. Suggestion of small bilateral pleural effusions. Bibasilar atelectasis and/or infiltrate, more prominent on left. This is stable. Increased interstitial markings suggesting edema. Cardiac silhouette is unchanged. Dr. Diego consulted. Dr. Vela is on the case as well. ASSESSMENT AND PLAN: 1. Vcopbqk-caxjg-agpf-old female with metabolic acidosis and renal dysfunction, acute kidney injury, suspect acute tubular necrosis and respiratory compensation. Breathing appears a little better. Likely she will need dialysis today for volume and for control of acidosis. I do not see any definite source of infection. Continue broad-spectrum antibiotics. It is possible she has pneumonia. 2. Diabetes mellitus. There may have been an element of ketoacidosis, as well, diabetic ketoacidosis, but continue our present treatment. Renal ultrasound from the was negative exam. Abdominal and pelvic CT from the : Enlarged right upper quadrant retroperitoneal mass, mild rectal stool impaction, diverticulosis coli, trace retroperitoneal free air left kidney. Review of present orders. I do not see anything to change at this time. She is on micafungin. She is on Levaquin and cefepime.
[2016-08-19 14:45] LABS: CALCIUM 8.3 mg/dL (8.8-10.2); MAGNESIUM 1.8 mg/dL (1.5-2.7); POTASSIUM 4.7 mmol/L (3.5-5.1)
[2016-08-19] MEDS: LOVENOX SUBQ SCH (18:29)
[2016-08-19] MEDS: PROTONIX IV SCH (18:29)
[2016-08-19] MEDS: LEVAQUIN 250 MG/D5W 50 ML IV SCH (20:27)
[2016-08-19] MEDS: MONISTAT-7 VAG CREAM VAG SCH (20:52)
[2016-08-19] MEDS: MYCAMINE 100 MG in NS 100 ML IV SCH (21:40)
[2016-08-19 22:55] LABS: CALCIUM 8.2 mg/dL (8.8-10.2); MAGNESIUM 1.8 mg/dL (1.5-2.7); POTASSIUM 4.5 mmol/L (3.5-5.1)
[2016-08-19] MEDS ORDERED: VANCOMYCIN 1.2 GM in NS 250 ML IV SCH (23:00)
[2016-08-20] MEDS: MORPHINE IV PRN ×5 (00:09→22:16)
[2016-08-20 04:23] LABS: ALLEN TEST YES; BE -5.5 mmoll (-3.0-3.0); BLOOD TYPE ARTERIAL; DRAW SITE R RADIAL; METHB 1.6 % (0.0-1.5); O2(CT) 23.4 mL/dL (15.0-23.0); PCO2(98.6) 39 mmHg (35-45); PO2(98.6) 140 mmHg (60-100); SAMPLE BLOOD; SAO2 99.6 % (95.0-100.0); THB 17.1 g/dL (11.5-17.4); pH(98.6) 7.32 (7.35-7.45)
[2016-08-20 04:30] LABS: MODALITY VENTIMASK
[2016-08-20] MEDS: SODIUM BICARBONATE 8.4% 100 MEQ in STERILE WATER INJ. 1,000 ML IV SCH ×2 (04:33→22:59)
[2016-08-20 06:03] LABS: BASO% 0.4 % (0.0-0.8); EOS# 0.04 X1000 (0.0-0.7); EOS% 0.4 % (0.0-10.0); HEMATOCRIT 28.5 % (37.0-47.0); HEMOGLOBIN 9.4 g/dL (12.0-16.0); IMM GRAN# 0.19 X1000 (0.0-0.04); IMM GRAN% 1.9 % (0.0-0.5); LYMPH% 11.8 % (20.5-51.1); MANUAL DIFF NEEDED? YES; MCH 28.1 PG (27-31); MCV 85.1 FL (81-99); MONO# 0.78 X1000 (0.11-0.59); MONO% 7.7 % (1.7-9.3); MPV 12.4 FL (7.4-10.4); NEUT% 77.8 % (42.2-75.2); PLT 71 X1000 (130-400); RBC 3.35 XMIL (4.2-5.4)
[2016-08-20 06:12] LABS: CALCIUM 8.4 mg/dL (8.8-10.2); MAGNESIUM 1.7 mg/dL (1.5-2.7); POTASSIUM 4.7 mmol/L (3.5-5.1)
--- NOTE | 2016-08-20 06:45 | Diag Imaging Result Document ---
PROCEDURE NAME: CHEST-1 VIEW - 08/20/2016 PORTABLE CHEST: COMPARISON: Compared to 08/19/2016. FINDINGS: The lungs are well expanded. The heart is enlarged. Mild interstitial markings. There is a small left pleural effusion. Increased density in the left base. No change in the left-sided [id number]. No pneumothorax. IMPRESSION: No interval improvement.
[2016-08-20 07:48] LABS: BANDS 1 % (0-1); EOS 1 % (1-10); MONO 3 % (1-9)
[2016-08-20 07:49] LABS: LYMPHS 11 % (21-51)
[2016-08-20] MEDS: LASIX IV SCH ×2 (08:31→20:25)
[2016-08-20] MEDS: HUMULIN R 100 UNIT in NS 99 ML IV SCH (08:35)
[2016-08-20] MEDS: MAXIPIME 0.5 GM in NS 50 ML IV SCH ×2 (08:40→20:25)
--- NOTE | 2016-08-20 09:23 | PROGRESS NOTE ---
DATE: 08/20/2016 SUBJECTIVE: She is more alert today. She was somewhat difficult to control overnight but she is awake, alert, and fixes on me. Answers simple questions but she is disoriented. OBJECTIVE: Vital Signs: Blood pressure 146/99, heart rate 106, respirations 16, afebrile. Intake and output: Intake 2.7 L. Output 1.5 L. General: No acute distress. Skin: Warm and dry. HEENT: Conjunctivae are pink. Oropharynx is moist. Neck: Supple. Neck veins are not distended. Heart: Regular. Lungs: Have equal breath sounds. No crackles. Abdomen: Soft and nontender. Bowel sounds are present. Extremities: Have edema, especially in the upper extremities. No clubbing or cyanosis. LABORATORY DATA: Sodium 146, potassium 4.7, chloride 112, bicarbonate 19, BUN 73, creatinine 5.5. Hemoglobin 9.4. IMPRESSIONS: 1. Acute kidney injury. Good urine output but her BUN and creatinine continue to rise, suggesting no recovery of GFR. She is modestly volume overloaded so I will give diuretics today. Observe her response over the next 24 hours. She may require dialysis. I have discussed this with the family. 2. Volume status, as above. Decrease her IV fluids. 3. Acid-base: Improved. Decrease her IV bicarbonate.
--- NOTE | 2016-08-20 09:37 | PROGRESS NOTE ---
DATE: 08/20/2016 SUBJECTIVE: Ms. Pabon, I was able to arouse her. She was appropriate, explained where she was and that she was in the hospital. She did recognize her daughter. Breathing is much more comfortable. PHYSICAL EXAMINATION: Vital Signs: Today, temperature 97.6 degrees, pulse 106, respirations 16, blood pressure 146/99. Lungs: Clear in all lung bay. Cardiovascular Examination: Regular rhythm and rate without murmur or S3. Abdomen: Soft. Skin: Warm and dry. Is and Os: Urine output about 1400 mL. LAB: White count 10,150, hematocrit 28, platelet count 71,000. Sodium 146, potassium 4.7, chloride 112, BUN 73, creatinine 5.5, blood sugar is 134, 163, 194, 171. Note, her serum creatinine has gone up a little bit. We will see how she does. She is making urine, responding to Lasix but may need to dialyze her tomorrow depending on what her lab is and volume status. ASSESSMENT AND PLAN: 1. Acute tubular necrosis, acute kidney injury. May need dialysis. Nephrology following. Electrolytes fairly stable. Volume status, she is making urine. 2. Diabetes mellitus type 2. Follow sugars. 3. Acidosis seems to be improving. We will continue broad-spectrum antibiotics. Note the baseline creatinine is 1.2-1.6. We will continue sodium bicarbonate 2 ampules at 100 mL an hour.
[2016-08-20 14:40] LABS: CALCIUM 8.4 mg/dL (8.8-10.2); MAGNESIUM 1.7 mg/dL (1.5-2.7); POTASSIUM 4.6 mmol/L (3.5-5.1)
--- NOTE | 2016-08-20 17:35 | PROGRESS NOTE ---
DATE: 08/20/2016 She is awake. She does not answer questions. Her eyes were open. Breathing appears to be more comfortable. Moving all extremities.Vital signs: Temperature 98.2 degrees, pulse 105, respirations 19, blood pressure 143/70. Urine output was good. Still a lot of edema in her arms and legs. White count came down this morning. Chemistries: Serum creatinine 5.8. So she may very well need dialysis. See what her numbers are tomorrow. Suspect acute tubular necrosis. Sugars look okay. Acidosis appears to be improving. She has extracellular fluid volume overload. Continue present antibiotics. She is on a bicarb drip, 8.4%, 100 mEq and it is going at 50 mL an hour.
[2016-08-20] MEDS: SODIUM CHLORIDE 0.9% INJ SCH (18:31)
[2016-08-20] MEDS: LOVENOX SUBQ SCH (18:32)
[2016-08-20] MEDS: PROTONIX IV SCH (18:32)
[2016-08-20] MEDS: MONISTAT-7 VAG CREAM VAG SCH (21:38)
[2016-08-20] MEDS: MYCAMINE 100 MG in NS 100 ML IV SCH (21:38)
[2016-08-20 23:09] LABS: CALCIUM 8.7 mg/dL (8.8-10.2); MAGNESIUM 1.7 mg/dL (1.5-2.7); POTASSIUM 4.2 mmol/L (3.5-5.1)
[2016-08-21] MEDS ORDERED: HALDOL IM PRN (00:58)
[2016-08-21] MEDS: APRESOLINE IV PRN (01:30)
[2016-08-21] MEDS: MORPHINE IV PRN ×2 (02:17→16:20)
[2016-08-21 04:45] LABS: ALLEN TEST YES; BE -3.2 mmoll (-3.0-3.0); BLOOD TYPE ARTERIAL; DRAW SITE R RADIAL; METHB 1.5 % (0.0-1.5); O2(CT) 19.2 mL/dL (15.0-23.0); PCO2(98.6) 24 mmHg (35-45); PO2(98.6) 84 mmHg (60-100); SAMPLE BLOOD; SAO2 98.7 % (95.0-100.0); THB 14.4 g/dL (11.5-17.4); pH(98.6) 7.49 (7.35-7.45)
[2016-08-21 04:46] LABS: MODALITY CANNULA
[2016-08-21 05:25] LABS: BASO% 0.9 % (0.0-0.8); EOS# 0.03 X1000 (0.0-0.7); EOS% 0.3 % (0.0-10.0); HEMATOCRIT 31.3 % (37.0-47.0); HEMOGLOBIN 10.7 g/dL (12.0-16.0); IMM GRAN# 0.47 X1000 (0.0-0.04); IMM GRAN% 5.3 % (0.0-0.5); LYMPH# 1.12 X1000 (1.2-3.4); LYMPH% 12.6 % (20.5-51.1); MANUAL DIFF NEEDED? YES; MCH 28.2 PG (27-31); MCHC 34.2 g/dL (33-37); MCV 82.4 FL (81-99); MONO# 0.81 X1000 (0.11-0.59); MONO% 9.1 % (1.7-9.3); MPV 12.1 FL (7.4-10.4); NEUT% 71.8 % (42.2-75.2); PLT 92 X1000 (130-400)
[2016-08-21] MEDS: TYLENOL PR PRN (06:07)
[2016-08-21 06:42] LABS: CALCIUM 8.6 mg/dL (8.8-10.2); MAGNESIUM 1.7 mg/dL (1.5-2.7); POTASSIUM 4.3 mmol/L (3.5-5.1)
[2016-08-21 06:55] LABS: BANDS 2 % (0-1); LYMPHS 16 % (21-51); MONO 8 % (1-9)
[2016-08-21] MEDS ORDERED: HEPARIN IV PRN (08:09)
[2016-08-21] MEDS ORDERED: NS 2,000 ML MISC PRN (08:09)
[2016-08-21] MEDS ORDERED: TIGHT: 0.2 ML/HR MISC PRN (08:09)
--- NOTE | 2016-08-21 08:21 | Diag Imaging Result Document ---
PROCEDURE NAME: CHEST/ABD TUBE PLACEMENT - 08/21/2016 ABDOMEN: COMPARISON: 08/20/2016. FINDINGS: Nasogastric tube is not visible on this exam. IMPRESSION: Nasogastric tube is not visible.
--- NOTE | 2016-08-21 08:32 | Diag Imaging Result Document ---
PROCEDURE NAME: CHEST-1 VIEW - 08/21/2016 PORTABLE CHEST X-RAY: COMPARISON: 08/20/2016. FINDINGS: There is a nasogastric tube with the tip in the stomach. Stable left chest port. Stable cardiomegaly and pulmonary vascular congestion. Stable retrocardiac consolidation and/or effusion. Stable right basilar infiltrate as well. IMPRESSION: New nasogastric tube, otherwise, no change from prior.
--- NOTE | 2016-08-21 08:36 | PROGRESS NOTE ---
DATE: 08/21/2016 SUBJECTIVE: She is spontaneously awake and alert, but she is not intelligible verbally today. OBJECTIVE: Vital Signs: Blood pressure 150/98, heart rate 104, respirations 16, temperature 99.3 degrees. Intake 1.5 L. Output 2.3 L. General: No acute distress. Skin: Warm and dry. HEENT: Conjunctivae are pink. Pupils are equal. Neck: Veins are not distended. Heart: Regular. Lungs: Equal. No crackles. Abdomen: Soft, nontender. Minimal bowel sounds but present. Extremities: Have 1+ edema. No clubbing or cyanosis. LABORATORY DATA: Sodium 150, potassium 4.3, chloride 109, bicarbonate 17, BUN 80, creatinine 6.2. Hemoglobin 10.7. pH 7.49, pCO2 24, PO2 84. IMPRESSION: Acute kidney injury. Good urine output but no improvement in her biochemical markers. She has persistent metabolic acidosis. She certainly meets criteria for dialysis at this point. I have discussed this with the daughter and she is in agreement. I have also discussed it with Dr. Figueroa, who will place access today. Hemodialysis thereafter.
[2016-08-21] MEDS ORDERED: NS 2,000 ML ONE (08:39)
[2016-08-21] MEDS: MAXIPIME 0.5 GM in NS 50 ML IV SCH ×2 (09:00→21:38)
[2016-08-21] MEDS: LASIX IV SCH ×2 (09:00→21:38)
--- NOTE | 2016-08-21 09:21 | Diag Imaging Result Document ---
PROCEDURE NAME: CHEST-PORTABLE - 08/21/2016 PORTABLE CHEST X-RAY AT 0900 HOURS: COMPARISON: 0510 hours. FINDINGS: There is a new right-sided dialysis catheter in good position with the distal tip at the lower SVC. Stable left chest port. No pneumothorax. Stable cardiomegaly. Stable bibasilar infiltrates and/or effusions. IMPRESSION: No complication from dialysis catheter placement.
--- NOTE | 2016-08-21 09:25 | PROGRESS NOTE ---
DATE: 08/21/2016 SUBJECTIVE: Ms. Pabon is breathing much more comfortably. She is just moaning. She does not really respond verbally but she is moving all extremities. OBJECTIVE: Vital Signs: Temp afebrile this morning, 99.3 degrees. Pulse 105. Respirations 16. Blood pressure 153/114. Lungs: Clear in all lung bay. Cardiovascular: Regular rhythm and rate without murmur or S3. Abdomen: Soft. Skin: Warm and dry. Weight: 220 pounds. INTAKE AND OUTPUT: Urine output was about a L. LABORATORY AND X-RAY DATA: Lab from this morning: White count 8890, hematocrit was 31, platelet count 92,000 and chemistry with sodium 150, potassium 4.3, chloride 109, BUN 80, creatinine 6.2, and anion gap up to 224. The chest x-ray from this morning with new nasogastric tube; otherwise, no changes at this time. ASSESSMENT AND PLAN: 1. Increased anion gap metabolic acidosis. Still delirium. No focal neurologic changes that I can find. We will plan on dialysis today with worsening azotemia. 2. Diabetes mellitus type 2. Continue to follow sugars with sliding scale. 3. Respiratory status is improved. She probably has obstructive sleep apnea. REVIEW OF ORDERS: I do not know that I see any change. She is on miconazole vaginal cream 2% at bedtime. She is on low-dose Lovenox for DVT prophylaxis. She is on Protonix 40 mg IV q.24. Cefepime she is getting 0.5 g q.12 hours. Levaquin 250 mg IV q.48h hours. Lasix 100 mg IV q.12 hours. She is getting a bicarbonate drip 8.4% at 15 cc an hour.
--- NOTE | 2016-08-21 10:10 | OPERATIVE NOTE ---
PROCEDURE DATE: 08/21/2016 PREOPERATIVE DIAGNOSES: 1. Acute renal failure, requiring hemodialysis. 2. Phlebosclerosis. 3. Diabetes mellitus, type 2. POSTOPERATIVE DIAGNOSES: 1. Acute renal failure, requiring hemodialysis. 2. Phlebosclerosis. 3. Diabetes mellitus, type 2. PROCEDURE PERFORMED: Ultrasound-guided placement of right internal jugular vein Vas-Cath. SURGEON: Tye Figueroa MD BELL CLERK: None. ANESTHESIA: Local, administered by the surgeon. HISTORY: The patient is a 76-year-old female who came in with what sounds like diabetic ketoacidosis. Her kidneys have subsequently gone into acute renal failure and she needed dialysis. The risks, benefits, and alternatives for placement of a Vas-Cath were discussed with the patient and the family. They voiced understanding and wished to proceed with the procedure. I did discuss the case extensively with Dr. Vela. DESCRIPTION OF PROCEDURE: After informed consent was obtained, the patient remained in her ICU bed. Her right neck was then prepped and draped in a sterile fashion. Using the ultrasound, I was able to identify the right internal jugular vein. I used a local anesthetic to anesthetize the skin. I was able to cannulate the right internal jugular vein and passed a wire into the superior vena cava. I was able dilate up the tract using typical Seldinger technique and placed a Vas-Cath in the neck. I secured it in place. All ports aspirated and flushed blood easily. At the completion of the case, we placed a sterile dressing. At the time of this dictation a chest x-ray has been performed and was read as normal with good catheter placement. The patient tolerated the procedure well. She has remained in her ICU bed.
[2016-08-21] MEDS ORDERED: NS 1,000 ML ONE (13:52)
[2016-08-21 14:23] LABS: CALCIUM 8.1 mg/dL (8.8-10.2); MAGNESIUM 1.6 mg/dL (1.5-2.7)
--- NOTE | 2016-08-21 16:35 | Diag Imaging Result Document ---
PROCEDURE NAME: CHEST/ABD TUBE PLACEMENT - 08/21/2016 PORTABLE CHEST AT 1618 HOURS: COMPARISON: 0900 hours. FINDINGS: There is a nasogastric tube in good position with the tip in stomach. IMPRESSION: See findings.
[2016-08-21] MEDS: SODIUM BICARBONATE 8.4% 100 MEQ in STERILE WATER INJ. 1,000 ML IV SCH (18:46)
[2016-08-21] MEDS: PROTONIX IV SCH (18:47)
[2016-08-21] MEDS: LOVENOX SUBQ SCH (18:47)
[2016-08-21] MEDS: SODIUM CHLORIDE 0.9% INJ SCH (18:47)
[2016-08-21] MEDS: MONISTAT-7 VAG CREAM VAG SCH (21:38)
[2016-08-21] MEDS: LEVAQUIN 250 MG/D5W 50 ML IV SCH (21:38)
[2016-08-21] MEDS: MYCAMINE 100 MG in NS 100 ML IV SCH (21:38)
[2016-08-21 22:35] LABS: CALCIUM 7.9 mg/dL (8.8-10.2); MAGNESIUM 1.6 mg/dL (1.5-2.7); POTASSIUM 3.7 mmol/L (3.5-5.1)
[2016-08-22 04:37] LABS: ALLEN TEST YES; BE 6.4 mmoll (-3.0-3.0); BLOOD TYPE ARTERIAL; DRAW SITE R RADIAL; METHB 1.8 % (0.0-1.5); O2(CT) 14.3 mL/dL (15.0-23.0); PCO2(98.6) 31 mmHg (35-45); PO2(98.6) 78 mmHg (60-100); SAMPLE BLOOD; SAO2 97.9 % (95.0-100.0); THB 10.8 g/dL (11.5-17.4)
[2016-08-22 04:56] LABS: MODALITY ROOM AIR; pH(98.6) 7.57 (7.35-7.45)
[2016-08-22 05:17] LABS: CALCIUM 8.5 mg/dL (8.8-10.2); MAGNESIUM 1.6 mg/dL (1.5-2.7); POTASSIUM 3.3 mmol/L (3.5-5.1)
[2016-08-22 06:08] LABS: BASO% 0.2 % (0.0-0.8); EOS# 0.04 X1000 (0.0-0.7); EOS% 0.5 % (0.0-10.0); HEMOGLOBIN 9.5 g/dL (12.0-16.0); IMM GRAN# 0.46 X1000 (0.0-0.04); IMM GRAN% 5.7 % (0.0-0.5); LYMPH# 1.34 X1000 (1.2-3.4); LYMPH% 16.7 % (20.5-51.1); MANUAL DIFF NEEDED? YES; MCH 27.9 PG (27-31); MCHC 33.9 g/dL (33-37); MCV 82.4 FL (81-99); MONO# 1.23 X1000 (0.11-0.59); MONO% 15.3 % (1.7-9.3); MPV 12.2 FL (7.4-10.4); NEUT% 61.6 % (42.2-75.2); PLT 126 X1000 (130-400)
[2016-08-22 07:12] LABS: BANDS 2 % (0-1); LYMPHS 16 % (21-51); MONO 18 % (1-9)
[2016-08-22 07:13] LABS: HYPOCHROM 1+; LARGE PLATELETS 1+
[2016-08-22] MEDS: LASIX IV SCH (08:13)
[2016-08-22] MEDS: MAXIPIME 0.5 GM in NS 50 ML IV SCH ×2 (08:13→21:07)
[2016-08-22] MEDS ORDERED: NS 2,000 ML ONE (08:20)
[2016-08-22] MEDS ORDERED: HEPARIN ONE ×2 (08:20→08:49)
[2016-08-22] MEDS: ZOFRAN IV PRN (08:29)
[2016-08-22] MEDS: MORPHINE IV PRN ×2 (08:32→21:08)
--- NOTE | 2016-08-22 08:54 | Diag Imaging Result Document ---
PROCEDURE NAME: CHEST-1 VIEW - 08/22/2016 PORTABLE CHEST X-RAY: 08/22/2016. COMPARISON: 08/21/2016. FINDINGS: The nasogastric tube has been removed. There are double central lines. Stable cardiomegaly, pulmonary vascular congestion, and hazy central infiltrates. This is compatible with pulmonary edema. Stable small pleural effusions. IMPRESSION: No significant change from prior.
[2016-08-22] MEDS ORDERED: NS 2,000 ML MISC PRN (09:55)
[2016-08-22] MEDS ORDERED: HEPARIN IV PRN (09:55)
[2016-08-22] MEDS ORDERED: TIGHT: 0.2 ML/HR MISC PRN (09:55)
--- NOTE | 2016-08-22 10:25 | PROGRESS NOTE ---
DATE: 08/22/2016 SUBJECTIVE: She is awake. She is communicating. Earlier, daughter said she was complaining of some abdominal pain. No complaints of pain at this time. I think she is oriented to person, not sure she knows where she is. Certainly has no recall of recent events. OBJECTIVE: Vital Signs: Temperature 97.7 degrees, pulse 100, respirations 15, blood pressure 168/99. Lungs: Clear in all lung bay. Cardiovascular: Regular rhythm and rate, without murmur or S3. Abdomen: Soft. Skin: Warm and dry. Urine output 2400 mL. LAB: White count 8030, hematocrit was 28, platelet count a 126,000. Sodium 143, potassium 3.3, chloride 100, bicarb 24, BUN 43, creatinine 4.6. Blood sugar 150, 122, 161, and 148. Albumin 2.2. Chest x-ray, no significant change from prior on 08/21. Nasogastric tube has been removed. She pulled it out. There are double central lines. Stable cardiomegaly. Pulmonary vascular congestion. Hazy central infiltrates, compatible with pulmonary edema. ASSESSMENT AND PLAN: 1. Increased anion gap metabolic acidosis with delirium. Her mental status is improving. More awake and alert. Dialysis yesterday. Continue dialysis per Dr. Vela. Electrolytes, acid base status appeared to be stable. She has a little bit of hypokalemia. I believe that will probably addressed with dialysis. Creatinine is 4.6. 2. Diabetes mellitus. Sugars under fairly good range and good control. 3. Respiratory status is improved. Appears to have still some pulmonary venous hypertension on chest x-ray. This review of orders, I do not see any change at this time. She is still on the Micafungin. She is on the Levaquin, cefepime, and Protonix 40 mg IV q.24 hours.
--- NOTE | 2016-08-22 11:26 | PROGRESS NOTE ---
DATE: 08/22/2016 SUBJECTIVE: Today, she is awake and alert, looking around, asking appropriate questions. OBJECTIVE: Vital Signs: Blood pressure 168/99, heart rate 100, respirations 15, afebrile. Intake 1.6 L. Output 4.1 L with 2.1 L of urine output. PHYSICAL EXAMINATION: No acute distress. Skin is warm and dry. Conjunctivae are pink. Pupils are equal. Neck veins are not distended. Heart is regular with systolic murmur. Lungs have equal breath sounds without crackles or wheezes. Abdomen is obese and soft. Bowel sounds are present. Extremities with trace edema. No clubbing or cyanosis. LABORATORY DATA: Sodium 143, potassium 3.3, chloride 100, bicarbonate 24. BUN 43, creatinine 4.6, hemoglobin 9.5. IMPRESSION: 1. Acute kidney injury. She has responded nicely, but she still has rising BUN and creatinine following dialysis. We will continue dialysis today with a 4 potassium bath and 32 bicarbonate. Goal of 1-2 L ultrafiltration today. We will hold dialysis tomorrow. 2. Electrolytes acceptable. 4 K bath as above. 3. Acid base, improved. Acetone is still not negative as of yesterday. 4. Anemia, stable.
[2016-08-22 15:33] LABS: HEPATITIS B PROFILE SEE COMMENTS (())
[2016-08-22 15:38] LABS: CALCIUM 8.2 mg/dL (8.8-10.2); MAGNESIUM 1.6 mg/dL (1.5-2.7); POTASSIUM 3.6 mmol/L (3.5-5.1)
[2016-08-22 16:16] LABS: CK INDEX 0.6 (0.0-2.5); CK-MB 3.39 ng/mL (0.0-5.0)
[2016-08-22] MEDS: PROTONIX IV SCH (18:17)
[2016-08-22] MEDS: SODIUM CHLORIDE 0.9% INJ SCH (18:17)
[2016-08-22] MEDS: LOVENOX SUBQ SCH (18:17)
[2016-08-22] MEDS: HUMULIN R 100 UNIT in NS 99 ML IV SCH (20:58)
[2016-08-22] MEDS: MONISTAT-7 VAG CREAM VAG SCH (21:07)
[2016-08-22 22:56] LABS: CALCIUM 8.5 mg/dL (8.8-10.2); MAGNESIUM 1.6 mg/dL (1.5-2.7); POTASSIUM 3.6 mmol/L (3.5-5.1)
[2016-08-23] MEDS ORDERED: G.I. COCKTAIL PO ONE (04:36)
[2016-08-23 04:53] LABS: ALLEN TEST YES; BE 6.9 mmoll (-3.0-3.0); DRAW SITE R RADIAL; METHB 0.3 % (0.0-1.5); O2(CT) 9.2 mL/dL (15.0-23.0); PCO2(98.6) 43 mmHg (35-45); SAMPLE BLOOD; SAO2 65.8 % (95.0-100.0); THB 10.4 g/dL (11.5-17.4); pH(98.6) 7.47 (7.35-7.45)
[2016-08-23] MEDS: MORPHINE IV PRN ×3 (04:53→18:12)
[2016-08-23 04:55] LABS: BLOOD TYPE VENOUS; MODALITY ROOM AIR
[2016-08-23 05:12] LABS: PO2(98.6) 35 mmHg (60-100)
[2016-08-23 05:24] LABS: BASO% 0.9 % (0.0-0.8); EOS# 0.07 X1000 (0.0-0.7); EOS% 0.9 % (0.0-10.0); HEMOGLOBIN 9.2 g/dL (12.0-16.0); IMM GRAN# 0.68 X1000 (0.0-0.04); IMM GRAN% 8.5 % (0.0-0.5); LYMPH% 21.2 % (20.5-51.1); MANUAL DIFF NEEDED? YES; MCHC 32.9 g/dL (33-37); MCV 85.4 FL (81-99); MONO% 17.4 % (1.7-9.3); MPV 12.2 FL (7.4-10.4); NEUT% 51.1 % (42.2-75.2); PLT 154 X1000 (130-400); RBC 3.28 XMIL (4.2-5.4)
[2016-08-23 05:38] LABS: CALCIUM 9.2 mg/dL (8.8-10.2); MAGNESIUM 1.6 mg/dL (1.5-2.7); POTASSIUM 3.6 mmol/L (3.5-5.1)
[2016-08-23 05:52] LABS: BANDS 4 % (0-1); LYMPHS 18 % (21-51); MONO 18 % (1-9)
[2016-08-23] MEDS: MAXIPIME 0.5 GM in NS 50 ML IV SCH ×2 (09:13→21:21)
--- NOTE | 2016-08-23 10:08 | Diag Imaging Result Document ---
PROCEDURE NAME: CHEST-1 VIEW - 08/23/2016 PORTABLE CHEST X-RAY, 08/23/2016: COMPARISON: 08/22/2016. FINDINGS: Stable bilateral central lines. Stable cardiomegaly and central pulmonary vascular congestion. Stable retrocardiac consolidation/effusion. Lung volumes are lower. No new infiltrates. IMPRESSION: No significant change from prior.
--- NOTE | 2016-08-23 10:09 | Diag Imaging Result Document ---
PROCEDURE NAME: KUB ABDOMEN - 08/23/2016 X-RAY ABDOMEN, 08/23/2016: COMPARISON: 08/21/2016. FINDINGS: There is no definite bowel obstruction or evidence of free air. IMPRESSION: No significant abnormality.
[2016-08-23] MEDS: HUMULIN R SUBQ SCH ×3 (10:35→21:55)
--- NOTE | 2016-08-23 15:37 | PROGRESS NOTE ---
DATE: 08/23/2016 SUBJECTIVE: Ms. Pabon is awake. She is asking for food. Oriented to person, place, and very pleasant. She apparently has complained of some abdominal pain earlier this morning/last night which is not there now. OBJECTIVE: Vital signs: Temp 98.3 degrees, pulse 100, respirations 18, blood pressure 144/99. Lungs: Clear in all lung bay. Cardiovascular: Regular rhythm and rate without murmur or S3. Abdomen: Soft. Skin: Warm and dry. Intake and output: Urine output was 2500 mL. LAB: Today white count 8,030, hematocrit 28, platelet count 154,000. Sodium 144, potassium 3.6, chloride 101, bicarb 26, BUN 28, creatinine 3.6. Blood sugars 141, 156, and 118. Albumin 2.4. ASSESSMENT AND PLAN: 1. Acute kidney injury. Volume status, electrolytes stable and improving. 2. Anemia, stable. 3. Mental status. Neurologically marked improvement. 4. Will start her on soft renal diet and see how we do with this. Continue present antibiotics for now. Hopefully we can start backing down on these. Pleased with improvement.
[2016-08-23] MEDS: SODIUM CHLORIDE 0.9% INJ SCH (18:16)
[2016-08-23] MEDS: PROTONIX IV SCH (18:16)
[2016-08-23] MEDS: LOVENOX SUBQ SCH (18:16)
[2016-08-23] MEDS: LEVAQUIN 250 MG/D5W 50 ML IV SCH (21:13)
[2016-08-23] MEDS: MONISTAT-7 VAG CREAM VAG SCH (21:17)
[2016-08-24 04:49] LABS: ALLEN TEST YES; BE 0.2 mmoll (-3.0-3.0); BLOOD TYPE ARTERIAL; DRAW SITE R RADIAL; METHB 1.7 % (0.0-1.5); O2(CT) 16.7 mL/dL (15.0-23.0); PCO2(98.6) 33 mmHg (35-45); PO2(98.6) 83 mmHg (60-100); SAMPLE BLOOD; SAO2 98.1 % (95.0-100.0); THB 12.6 g/dL (11.5-17.4); pH(98.6) 7.46 (7.35-7.45)
[2016-08-24 04:55] LABS: MODALITY ROOM AIR
[2016-08-24] MEDS: MORPHINE IV PRN ×2 (05:03→15:38)
[2016-08-24 05:45] LABS: BASO% 0.6 % (0.0-0.8); EOS# 0.07 X1000 (0.0-0.7); EOS% 0.8 % (0.0-10.0); HEMATOCRIT 25.6 % (37.0-47.0); HEMOGLOBIN 8.3 g/dL (12.0-16.0); IMM GRAN# 0.76 X1000 (0.0-0.04); IMM GRAN% 8.6 % (0.0-0.5); LYMPH% 15.8 % (20.5-51.1); MANUAL DIFF NEEDED? YES; MCHC 32.4 g/dL (33-37); MCV 86.5 FL (81-99); MONO% 11.3 % (1.7-9.3); MPV 11.8 FL (7.4-10.4); NEUT% 62.9 % (42.2-75.2); PLT 198 X1000 (130-400); RBC 2.96 XMIL (4.2-5.4)
[2016-08-24 06:03] LABS: BANDS 2 % (0-1); LYMPHS 20 % (21-51); MONO 16 % (1-9)
[2016-08-24 06:07] LABS: CALCIUM 9.7 mg/dL (8.8-10.2); MAGNESIUM 1.7 mg/dL (1.5-2.7); POTASSIUM 3.8 mmol/L (3.5-5.1)
[2016-08-24] MEDS ORDERED: NS 2,000 ML MISC PRN (06:36)
[2016-08-24] MEDS ORDERED: TIGHT: 0.2 ML/HR MISC PRN (06:36)
[2016-08-24] MEDS ORDERED: HEPARIN IV PRN (06:36)
[2016-08-24] MEDS: HUMULIN R SUBQ SCH ×4 (06:48→21:35)
--- NOTE | 2016-08-24 08:25 | Diag Imaging Result Document ---
PROCEDURE NAME: CHEST-1 VIEW - 08/24/2016 PORTABLE CHEST X-RAY: COMPARISON: 08/23/2016. FINDINGS: Stable double central lines. Stable cardiomegaly and pulmonary vascular congestion. Stable ill-defined nonspecific infiltrates in the lung bases as well as effusions. IMPRESSION: No change from prior.
--- NOTE | 2016-08-24 08:42 | PROGRESS NOTE ---
DATE: 08/24/2016 SUBJECTIVE: Ms. Pabon is awake, alert. She is talking somewhat excessively and asking similar related questions repeatedly. Staff states that she has been talking most of the night. OBJECTIVE: Vital Signs: Blood pressure 185/96, heart rate 96, respirations 19, afebrile. Intake 750 mL. Output 500 mL. General: No acute distress. Skin: Warm and dry. Conjunctivae are pink. Neck: Neck veins are not distended. Trachea is midline. Heart: Regular with a gallop. Lungs: Have equal breath sounds. No crackles. Abdomen: Soft, nontender. Bowel sounds are present. Extremities: Have no significant edema, clubbing or cyanosis. LABORATORY DATA: Sodium 140, potassium 3.8, chloride 97, bicarbonate 21, BUN 41, creatinine 4.9, hemoglobin 8.3. IMPRESSION: 1. Acute kidney injury. No improvement. She will need hemodialysis again today. A 3 potassium bath and a goal of 2 L ultrafiltration. 2. Electrolytes are acceptable. 3. Acid-base: Modest metabolic acidosis that will be addressed with dialysis. 4. Anemia: Hemoglobin is slowly falling. No indications for transfusion. 5. Hypertension. She normally takes antihypertensive treatment at home but this has not been restarted in the hospital. Her home medications include Ziac, metoprolol. I will restart her Ziac.
[2016-08-24] MEDS ORDERED: NS 2,000 ML ONE (08:47)
[2016-08-24] MEDS: MAXIPIME 0.5 GM in NS 50 ML IV SCH ×2 (09:00→21:34)
[2016-08-24] MEDS: ZEBETA PO SCH (09:07)
--- NOTE | 2016-08-24 09:38 | PROGRESS NOTE ---
DATE: 08/24/2016 SUBJECTIVE: Ms. Pabon is awake. Talked to her family. She has had no complaints. Feels good. Denies any abdominal pain, breathing comfortably. OBJECTIVE: Vital signs: Temperature 98.3 degrees, pulse 96, respirations 19, blood pressure 185/96. Lungs: Clear in all lung bay. Cardiovascular: Regular rhythm and rate without, murmur or S3. Abdomen: Soft. Skin: Warm and dry. Genitourinary: Good urine output of 400 mL. LAB: White count 8840, hematocrit 25, platelet count 198,000. Sodium 140, potassium 3.8, chloride 97, BUN 41, creatinine 4.9, blood sugars 200, 208, 257. ASSESSMENT AND PLAN: 1. Acute kidney injury. Volume status and electrolytes stable. Dialysis again today to try and improve her volume status. 2. Anemia, stable. 3. Mental status and neurologically markedly improved. She did have some delirium. She is oriented to person. Does not remember the events of the last couple of days. 4. Started on p.o. food, renal diet, and she is tolerating that well. 5. Status post respiratory failure. Breathing doing well. Off the ventilator. Does not require Bi-Pap. Chest x-ray from today stable. Double central line stable, cardiomegaly, with pulmonary vascular congestion. Ill-defined nonspecific infiltrates in lung bases, as well as effusions. Will continue present orders. I have reviewed them. I do not see any change at this point. Making good progress.
[2016-08-24] MEDS: LOVENOX SUBQ SCH (21:34)
[2016-08-24] MEDS: MONISTAT-7 VAG CREAM VAG SCH (21:34)
[2016-08-25 05:21] LABS: BASO% 0.5 % (0.0-0.8); EOS# 0.06 X1000 (0.0-0.7); EOS% 0.6 % (0.0-10.0); HEMATOCRIT 25.5 % (37.0-47.0); HEMOGLOBIN 8.2 g/dL (12.0-16.0); IMM GRAN% 7.7 % (0.0-0.5); LYMPH# 1.72 X1000 (1.2-3.4); LYMPH% 16.6 % (20.5-51.1); MANUAL DIFF NEEDED? YES; MCH 27.9 PG (27-31); MCHC 32.2 g/dL (33-37); MCV 86.7 FL (81-99); MONO% 9.7 % (1.7-9.3); MPV 11.3 FL (7.4-10.4); NEUT% 64.9 % (42.2-75.2); PLT 219 X1000 (130-400); RBC 2.94 XMIL (4.2-5.4)
[2016-08-25 05:29] LABS: EOS 2 % (1-10); LYMPHS 18 % (21-51); MONO 4 % (1-9)
[2016-08-25 05:35] LABS: CALCIUM 9.3 mg/dL (8.8-10.2); MAGNESIUM 1.6 mg/dL (1.5-2.7); POTASSIUM 3.5 mmol/L (3.5-5.1)
[2016-08-25] MEDS: PROTONIX IV SCH (06:10)
[2016-08-25] MEDS: HUMULIN R SUBQ SCH ×4 (06:10→20:47)
--- NOTE | 2016-08-25 06:48 | Diag Imaging Result Document ---
PROCEDURE NAME: CHEST-1 VIEW - 08/25/2016 PORTABLE CHEST: COMPARISON: Compared to 08/24/2016. FINDINGS: No change in the right jugular line or in the left [id number]-[id number]. No pneumothoraces. Cardiomegaly remains. The vessels are not distended. No consolidation. No pleural effusions identified. IMPRESSION: Stable chest.
--- NOTE | 2016-08-25 08:15 | PROGRESS NOTE ---
DATE: 08/25/2016 SUBJECTIVE: Ms. Pabon is sleeping. We did arouse her, but was breathing comfortably, appears comfortable. No sign of distress. OBJECTIVE: Vital signs: Temp 98.1 degrees, pulse 82, respirations 22, blood pressure 149/78. Lungs: Clear in all lung bay. Cardiovascular: Regular rhythm and rate without murmur or S3. Abdomen: Soft. Skin is warm and dry. Urine output above 2 L. IMAGING AND LABORATORY DATA: White count 10,360, hematocrit 25, platelet count 219,000. Sodium 136, potassium 3.5, chloride 95, BUN 26, creatinine 3.9, blood sugars 290 and 182. Chest x-ray from this morning: Stable chest. ASSESSMENT AND PLAN: 1. Acute kidney injury. Volume status is improved with dialysis. Electrolytes stable. Followed by Dr. Vela. Serum creatinine 3.9. 2. Anemia, stable. 3. Mental status neurologically markedly improved and awake and alert and cooperative. Will begin to start some physical therapy. 4. Started oral intake, and hopefully can advance that and encourage her to get food down. 5. Status post respiratory failure, off the ventilator and not requiring bilevel positive airway pressure, except as needed. 6. Ill-defined nonspecific infiltrates in lung bases. Continue present antibiotics. She is on Levaquin and cefepime at the present time, so will begin physical therapy.
[2016-08-25] MEDS: MAXIPIME 0.5 GM in NS 50 ML IV SCH ×2 (08:38→20:46)
[2016-08-25] MEDS: ZEBETA PO SCH (08:46)
[2016-08-25] MEDS: ZOFRAN IV PRN (10:14)
[2016-08-25] MEDS: MIRALAX PO SCH (11:07)
--- NOTE | 2016-08-25 11:45 | PROGRESS NOTE ---
DATE: 08/25/2016 TIME SEEN: 0940. SUBJECTIVE: Ms. Pabon is resting quietly in bed. She is confused. She has just had an enema with some results. Denies chest pain or increased work of breathing. OBJECTIVE: Her most recent vital signs are temperature 98.1, blood pressure 149 /78, heart rate is 82, respirations 22. She is on room air. Last recorded saturation 97%. She has had 490 in, she has had 2350 out with 2 L on dialysis yesterday. LABS: This a.m., sodium 136, potassium 3.5, chloride 95, CO2 of 24, BUN 26, creatinine 3.9, glucose 182. Anion gap 17, calcium 9.3, phosphorus 4.6, albumin 2.5, magnesium 1.6. White count 10.36, hemoglobin 8.2, hematocrit 25.5, with a platelet count of 219,000. PHYSICAL EXAMINATION: General: This is a 76-year-old, female. She is currently resting in bed. She appears in mild distress secondary to an enema with some results. Still complains of some abdominal pain. She is in no acute distress. HEENT: Normocephalic, atraumatic. Conjunctiva is pale. She has KWADWO. Mucous membranes moist. Neck : Supple. Trachea midline. No JVD. Cardiovascular: Regular rate and rhythm. She has a positive gallop. No murmurs appreciated. Lungs: Clear to auscultation anteriorly. Equal excursion. She is on room air. Abdomen: Large, round, soft, nontender. Positive bowel sounds. Genitourinary: Matute catheter remains in place. Adequate urine out to the bag at this time. Integumentary: No rashes or lesions evident. Extremities: Have no significant edema. No clubbing or cyanosis. Neurological: The patient is confused pleasantly, able to assist with exam. ASSESSMENT AND PLAN: 1. Acute kidney injury. No improvement. She has had some urine output. We will evaluate her labs in the a.m. Otherwise plan for hemodialysis as indicated to assist with fluid volume management. 2. Electrolytes, these are acceptable. 3. Acid-base balance. This is also acceptable with a mild anion gap acidosis. 4. Anemia. Again, this is low but stable. No indications for transfusion. 5. Hypertension. This is currently stable at this time. Primary care team is following. She has had her Ziac and metoprolol restarted. I would to thank you for allowing us to follow with this patient. Data reviewed, discussed with Roverto Castellano on 08/25/16. I agree with the above assessment and plan of care. rg Dictated by NETTIE Bah for Sim Vela MD [facility]
[2016-08-25] MEDS: LOVENOX SUBQ SCH (18:23)
[2016-08-25] MEDS ORDERED: CALMOSEPTINE OINTMENT TOP PRN (20:42)
[2016-08-25] MEDS: LEVAQUIN 250 MG/D5W 50 ML IV SCH (20:46)
[2016-08-25] MEDS: MONISTAT-7 VAG CREAM VAG SCH (20:46)
[2016-08-26] MEDS: MORPHINE IV PRN ×2 (05:26→13:52)
[2016-08-26] MEDS: PROTONIX IV SCH ×2 (05:27→06:18)
[2016-08-26] MEDS: HUMULIN R SUBQ SCH ×5 (05:40→21:27)
[2016-08-26 06:12] LABS: CALCIUM 9.6 mg/dL (8.8-10.2); MAGNESIUM 1.6 mg/dL (1.5-2.7); POTASSIUM 3.8 mmol/L (3.5-5.1)
[2016-08-26 06:13] LABS: BASO% 0.4 % (0.0-0.8); EOS# 0.06 X1000 (0.0-0.7); EOS% 0.6 % (0.0-10.0); HEMATOCRIT 23.2 % (37.0-47.0); HEMOGLOBIN 7.4 g/dL (12.0-16.0); IMM GRAN# 0.66 X1000 (0.0-0.04); IMM GRAN% 6.4 % (0.0-0.5); LYMPH# 1.63 X1000 (1.2-3.4); LYMPH% 15.9 % (20.5-51.1); MANUAL DIFF NEEDED? YES; MCH 27.8 PG (27-31); MCHC 31.9 g/dL (33-37); MCV 87.2 FL (81-99); MONO# 0.82 X1000 (0.11-0.59); MPV 10.9 FL (7.4-10.4); NEUT% 68.7 % (42.2-75.2); PLT 236 X1000 (130-400); RBC 2.66 XMIL (4.2-5.4)
[2016-08-26] MEDS ORDERED: NS 2,000 ML MISC PRN (08:36)
[2016-08-26] MEDS ORDERED: HEPARIN ONE (08:43)
[2016-08-26] MEDS ORDERED: NS 2,000 ML ONE (08:43)
--- NOTE | 2016-08-26 08:43 | Diag Imaging Result Document ---
PROCEDURE NAME: CHEST-1 VIEW - 08/26/2016 AP PORTABLE CHEST AT 0610 HOURS: FINDINGS: There is a Port-A-Cath on the left in the left internal jugular with its tip in the right atrium and a double-lumen right internal jugular catheter with its tip in the superior vena cava. There is cardiomegaly. The inspiration is somewhat better than on the previous study, but otherwise there has been no significant change since 08/25/2016. IMPRESSION: Stable chest.
--- NOTE | 2016-08-26 08:50 | PROGRESS NOTE ---
DATE: 08/26/2016 SUBJECTIVE: Ms. Pabon is awake and alert. She does have times of confusion according to her daughter but feeling much better. She has no appetite so food really does not taste good to her also. She knows she needs to eat and she wants to try get a little stronger. PHYSICAL EXAMINATION: Vital Signs: Temperature 97.1 degrees, pulse 74, respirations 18, blood pressure 132/71. HEENT: Pupils equal, round, and reactive. CVP less than 6 cm. Lungs: Clear in all lung bay. Cardiovascular Examination: Regular rhythm and rate without murmur or S3. Is and Os: Her urine output was a total of 880 yesterday. LAB: White count 10,240, hematocrit 23, platelet count 236,000. Sodium 135, potassium 3.8, chloride 95, BUN 37, creatinine 5.1, blood sugars 224, 202, and 204. ASSESSMENT AND PLAN: 1. Acute kidney injury. No improvement. She has had some urine output. Continue to follow. Continue hemodialysis as indicated. Volume status has improved. 2. Electrolytes, acid-base balance looked good. Anemia, no change. 3. Hypertension. Blood pressure under better control. 4. Status post respiratory failure. It is markedly improved. Good air and gas exchange. She has ill-defined infiltrates in lung bases. Continue to treat her as for pneumonia. Her urine output yesterday by record, she had 880 and then we took off 2000 mL with dialysis. On the , it shows that we had 1300 mL out. On the , 1999 L.
[2016-08-26 09:17] LABS: LYMPHS 20 % (21-51); MONO 6 % (1-9)
--- NOTE | 2016-08-26 13:24 | PROGRESS NOTE ---
DATE: 08/26/2016 SUBJECTIVE: The patient currently is sitting up on the side of the bed. She is apologetic for apparently acting out earlier in the hospitalization. She is awake, alert, and trying to eat breakfast. OBJECTIVE: Vital Signs: Temperature 97.1 degrees, pulse 74, respiratory rate 18, blood pressure 132/71. Intake 630 mL, output 50 mL. ASSESSMENT AND PLAN: 1. Acute kidney injury without improvement. Her creatinine has actually gone up overnight. Urine output has remained oliguric. We will plan to dialyze the patient today. I did discuss with the family and the patient that it does not appear that she has had recovery yet and that this could take some time and that it may be necessary to continue dialysis as an outpatient once primary is ready to discharge her. We will go ahead and make plans for that, so that if she gets out later on in the week that work will be in progress. 2. Electrolytes, acid-base balance. These are acceptable. Again, we will plan to dialyze her today. She will be on the 3 K bath. 3. Fluid volume. Again, she remains oliguric. 4. Status post respiratory failure, continues to improve and followed by primary. No changes needed. Dictated by NETTIE George for Sim Vela MD [facility]
[2016-08-26] MEDS: MIRALAX PO SCH (13:31)
[2016-08-26] MEDS: ZEBETA PO SCH (13:31)
[2016-08-26] MEDS: MAXIPIME 0.5 GM in NS 50 ML IV SCH ×2 (13:40→21:28)
[2016-08-26] MEDS: LOVENOX SUBQ SCH (18:14)
[2016-08-26] MEDS: MONISTAT-7 VAG CREAM VAG SCH (21:28)
[2016-08-27 05:23] LABS: BASO% 0.3 % (0.0-0.8); EOS# 0.07 X1000 (0.0-0.7); EOS% 0.6 % (0.0-10.0); HEMATOCRIT 23.7 % (37.0-47.0); HEMOGLOBIN 7.5 g/dL (12.0-16.0); IMM GRAN# 0.54 X1000 (0.0-0.04); LYMPH# 1.42 X1000 (1.2-3.4); LYMPH% 13.1 % (20.5-51.1); MANUAL DIFF NEEDED? YES; MCHC 31.6 g/dL (33-37); MCV 88.4 FL (81-99); MONO# 0.91 X1000 (0.11-0.59); MONO% 8.4 % (1.7-9.3); MPV 10.8 FL (7.4-10.4); NEUT% 72.6 % (42.2-75.2); PLT 248 X1000 (130-400); RBC 2.68 XMIL (4.2-5.4)
[2016-08-27 05:35] LABS: CALCIUM 9.2 mg/dL (8.8-10.2); MAGNESIUM 1.7 mg/dL (1.5-2.7); POTASSIUM 3.8 mmol/L (3.5-5.1)
[2016-08-27 06:01] LABS: LYMPHS 14 % (21-51); MONO 4 % (1-9)
[2016-08-27] MEDS: PROTONIX IV SCH (06:03)
[2016-08-27] MEDS: HUMULIN R SUBQ SCH ×4 (06:20→21:08)
[2016-08-27] MEDS: MORPHINE IV PRN ×2 (07:32→21:05)
--- NOTE | 2016-08-27 08:22 | Diag Imaging Result Document ---
PROCEDURE NAME: CHEST-1 VIEW - 08/27/2016 PORTABLE CHEST X-RAY: COMPARISON: 08/26/2016. FINDINGS: Stable bilateral central lines. Stable mild cardiomegaly and pulmonary vascular congestion. No significant infiltrates or edema. IMPRESSION: No change from prior.
[2016-08-27] MEDS: ZEBETA PO SCH (09:21)
[2016-08-27] MEDS: MIRALAX PO SCH (09:21)
--- NOTE | 2016-08-27 09:37 | PROGRESS NOTE ---
DATE: 08/27/2016 SUBJECTIVE: Ms. Pabon said she is a little sore. Her hips are stiff and she wants to do some physical therapy. Also had some questions about her previous home medications. The plan is to put a tunneled catheter in her right side for dialysis. PHYSICAL EXAMINATION: Vital Signs: Temperature 97.8 degrees, pulse 84, respirations 16, blood pressure 134/69. Lungs: Are clear in all lung bay. Cardiovascular Examination: Regular rhythm and rate without murmur or S3. Abdomen: Soft. Skin: Is warm and dry. Is and Os: Urine output 2600. LABORATORY DATA: Lab from today, white count 10,850, hematocrit 23, platelet count of 248,000. Sodium 135, potassium 3.8, chloride 95, bicarb 25, BUN 23, creatinine 4.2, blood sugars have been 277, 179, and 205. Chest x-ray from this morning, no change from prior, stable bilateral central line, stable mild cardiomegaly, pulmonary vasculature congestion. No significant infiltrates or edema at this time. ASSESSMENT AND PLAN: 1. Acute kidney injury without improvement. Her creatinine has actually gone up overnight. Patient remains oliguric. Going to plan to put a tunneled catheter and dialyze her today. Family aware. 2. Electrolytes, acid base, volume status, improving. Status post respiratory failure but respiratory status is good at this time. 3. General weakness and deconditioning. Physical therapy evaluation is in there already. Getting physical therapy now. 4. Nutrition is improving. Oral intake improved. 5. Review of orders. She is getting MiraLAX 17 g daily. She is getting her Zebeta 5 mg a day, Levaquin and cefepime. I believe we can stop her Levaquin. She grew out blood culture Escherichia coli on the and Klebsiella oxytoca from the . These were sensitive to Levaquin. Klebsiella was also sensitive to Levaquin so I think we can stop the cefepime. We will keep the Levaquin going. She is on Protonix 40 mg intravenous daily, Lovenox 30 mg subcutaneously every 24 hours, miconazole, she has been getting since the , vaginal cream.
--- NOTE | 2016-08-27 09:46 | PROGRESS NOTE ---
DATE: 08/27/2016 SUBJECTIVE: The patient currently sitting up in bed eating breakfast. She has no complaints. OBJECTIVE: Vital Signs: Temperature 97.8 degrees, pulse 84, respiratory rate 16, blood pressure 137/69. Intake 580 mL. Output 3.2 L of this 3 L ones ultrafiltrate removal on dialysis. General: This is an elderly female, sitting up on the side of the bed. No acute distress. HEENT: Normocephalic, atraumatic. Oral mucosa is moist. Neck: Supple. She has a Vas-Cath noted to the right neck. Cardiovascular: Regular rate and rhythm. No murmur. Pulmonary: Equal excursion. She is clear bilaterally. Abdomen: Soft, obese, positive bowel sounds. : Not inspected. She has a Matute catheter with small amount of urine noted. Extremities: She has trace to 1+ pretibial edema. Integumentary: Skin is warm and dry without rash or lesion. LAB DATA: WBC of 10.8, hemoglobin 7.5, hematocrit 23.7, platelet count of 247,000. Sodium 135, potassium 3.8, CO2 25, BUN 23, creatinine 4.2, calcium 9.2, phosphorus 4.7, magnesium 1.7. ASSESSMENT AND PLAN: 1. Acute kidney injury without improvement. Urine output remains marginal. Patient was dialyzed yesterday without difficulty. I discussed with the family that she would need outpatient dialysis if she does not have recovery and as such, we will request that Surgery exchange her Vas-Cath for a tunnel dialysis catheter. She has already had a serologies drawn. I will check with the social media manager at the dialysis clinic for outpatient clinic. 2. Electrolytes, acid-base balance, anemia. These are acceptable. She dialyzed yesterday. 3. Fluid volume. Again, urine output is marginal. Continue dialysis. 4. Status post respiratory failure. Followed by primary. Dictated by NETTIE George for Sim Vela MD
--- NOTE | 2016-08-27 13:34 | PROGRESS NOTE ---
DATE: 08/27/2016 SUBJECTIVE: The patient is without any complaints. OBJECTIVE: Vital signs: She is afebrile. Vital signs are stable. General: Alert, oriented x4. No acute distress. Neck: Supple. Vascular catheter is intact. LABORATORY: BUN 23, creatinine 4.2, potassium 3.8. Most recent blood culture on 08/17 was 1 out of 2 positive for E. coli. ASSESSMENT AND PLAN: This is a 76-year-old female with acute kidney injury and recent bacteremia. She has had no significant recovery. We have been asked to replace her vascular catheter with a tunneled dialysis catheter. I am going to recheck her blood cultures prior to placing this tunneled catheter. If those are negative then we will go ahead and do that, hopefully about 48 hours from now.
[2016-08-27] MEDS: LOVENOX SUBQ SCH (18:23)
[2016-08-27] MEDS: MONISTAT-7 VAG CREAM VAG SCH (20:44)
[2016-08-27] MEDS: LEVAQUIN 250 MG/D5W 50 ML IV SCH (20:45)
[2016-08-28 05:19] LABS: MANUAL DIFF NEEDED? NO
[2016-08-28 05:27] LABS: BASO% 0.4 % (0.0-0.8); EOS# 0.07 X1000 (0.0-0.7); EOS% 0.7 % (0.0-10.0); HEMATOCRIT 22.7 % (37.0-47.0); HEMOGLOBIN 7.3 g/dL (12.0-16.0); IMM GRAN# 0.47 X1000 (0.0-0.04); IMM GRAN% 4.9 % (0.0-0.5); LYMPH# 1.54 X1000 (1.2-3.4); MCH 28.4 PG (27-31); MCHC 32.2 g/dL (33-37); MCV 88.3 FL (81-99); MONO% 6.2 % (1.7-9.3); MPV 10.4 FL (7.4-10.4); NEUT% 71.8 % (42.2-75.2); PLT 270 X1000 (130-400); RBC 2.57 XMIL (4.2-5.4)
[2016-08-28 05:40] LABS: CALCIUM 9.5 mg/dL (8.8-10.2); MAGNESIUM 1.6 mg/dL (1.5-2.7); POTASSIUM 4.1 mmol/L (3.5-5.1)
[2016-08-28] MEDS: MORPHINE IV PRN (05:41)
[2016-08-28] MEDS: PROTONIX IV SCH (06:18)
[2016-08-28] MEDS: HUMULIN R SUBQ SCH ×4 (06:18→20:20)
--- NOTE | 2016-08-28 06:28 | Diag Imaging Result Document ---
PROCEDURE NAME: CHEST-1 VIEW - 08/28/2016 PORTABLE CHEST: COMPARISON: 08/27/2016. FINDINGS: No change in the right jugular line or the left-sided [id number]. No pneumothoraces. The heart remains enlarged. The vessels are not distended. There are scattered granuloma. Questionable tiny left pleural effusion. The overall appearance of the chest is quite similar to that of the prior exam. IMPRESSION: Stable chest.
[2016-08-28] MEDS ORDERED: HEPARIN ONE (08:05)
[2016-08-28] MEDS ORDERED: NS 2,000 ML ONE (08:05)
[2016-08-28] MEDS ORDERED: TIGHT: 0.2 ML/HR MISC PRN (08:15)
[2016-08-28] MEDS ORDERED: NS 2,000 ML MISC PRN (08:15)
[2016-08-28] MEDS ORDERED: HEPARIN IV PRN (08:15)
[2016-08-28] MEDS ORDERED: EPOGEN SUBQ ONE (08:59)
[2016-08-28] MEDS ORDERED: VANCOMYCIN IV PER PHARMACY MISC SCH (09:15)
--- NOTE | 2016-08-28 09:15 | PROGRESS NOTE ---
DATE: 08/28/2016 SUBJECTIVE: No new complaints today. She remains very weak. Some shortness of breath with exertion but not at rest. OBJECTIVE: Vital Signs: Blood pressure 138/77, heart rate 69, respirations 20, afebrile. Intake 340 mL. Output 100 mL. General: No acute distress. Skin: Warm and dry. Conjunctivae are pink. Neck: Neck veins are not distended. Trachea is midline. Heart: Regular with a gallop. Lungs: Have equal breath sounds. No crackles or wheezes. Abdomen: Soft and nontender. Bowel sounds are present. Extremities: Have 1+ edema. No clubbing or cyanosis. LABORATORY DATA: Sodium 133, potassium 4.1, chloride 93, bicarbonate 22, BUN 34, creatinine 5.5, hemoglobin 7.3. IMPRESSION: 1. Acute kidney injury, presumably acute tubular necrosis overlying chronic kidney disease with diabetes. Her most recent creatinine was 1.6 on 05/16/2016. At that time. She had heavy proteinuria as well. If she does not have any recovery over the weekend. 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 2. Hypertension in target. 3. Anemia: Her hemoglobin is low, but stable over the last several days. We will dose with erythropoietin and check iron studies. 4. Electrolytes are in target. 5. Acid-base in target.
--- NOTE | 2016-08-28 09:20 | PROGRESS NOTE ---
DATE: 08/28/2016 PHYSICAL EXAMINATION: Vital Signs: Afebrile. Temp 98.7 degrees, pulse 69, respirations 20, blood pressure 130/77. Lungs: Are clear in all lung bay. Cardiovascular: Regular rhythm and rate without murmurs or S3. Genitourinary: Poor urine output yesterday, about 240 mL. Plan is for dialysis today. LABORATORIES: From today, white count 9610, hematocrit 22, platelet count 270,000, sodium 133, potassium 4.1, chloride 93, bicarb 22, BUN 34, creatinine 5.5, blood sugars 145, 234, 236. Chest x-ray from this morning stable chest. No change in right jugular line or left-sided Port-A-Cath. No pneumothoraces. ASSESSMENT AND PLAN: 1. Acute kidney injury without improvement. Oliguria to dialyze today. Electrolytes acid-base stable. 2. Status post respiratory failure doing well. Air and gas exchange markedly improved. 3. Weakness and deconditioning. Continue physical therapy. 4. P.O. intake improving, nutrition improving. Orders reviewed. I do not see any change at this point. Note that 1 of her blood cultures grew out a gram positive cocci from her from her catheter. She is on Levaquin and these blood cultures were from the . She had previously had E. coli and Klebsiella oxytoca so I am going to put her back on vancomycin.
[2016-08-28] MEDS ORDERED: VANCOMYCIN 1 GM/NS 250 ML IV ONE (10:00)
[2016-08-28] MEDS: MIRALAX PO SCH (13:41)
[2016-08-28] MEDS: ZEBETA PO SCH (13:41)
[2016-08-28] MEDS: VANCOMYCIN 1 GM/NS 250 ML IV SCH (13:52)
--- NOTE | 2016-08-28 14:53 | PROGRESS NOTE ---
DATE: 08/28/2016 I reviewed her laboratory values and there is a preliminary blood culture drawn yesterday, the results are not back yet. She is afebrile. Vital signs are stable. Her white blood cell count is normal. The plan is to ensure her blood cultures are negative and then place a tunneled dialysis catheter. Dr. Rivas will cover in my absence over the weekend and I will have that up to his discretion as to the timing of her dialysis catheter being this weekend versus next week when I return.
[2016-08-28] MEDS: MONISTAT-7 VAG CREAM VAG SCH (20:22)
[2016-08-28] MEDS: LOVENOX SUBQ SCH (20:22)
[2016-08-29 05:21] LABS: MANUAL DIFF NEEDED? NO
[2016-08-29 05:31] LABS: BASO% 0.5 % (0.0-0.8); EOS# 0.06 X1000 (0.0-0.7); EOS% 0.8 % (0.0-10.0); HEMATOCRIT 23.4 % (37.0-47.0); HEMOGLOBIN 7.5 g/dL (12.0-16.0); IMM GRAN# 0.29 X1000 (0.0-0.04); IMM GRAN% 3.7 % (0.0-0.5); LYMPH# 1.37 X1000 (1.2-3.4); LYMPH% 17.3 % (20.5-51.1); MCH 28.3 PG (27-31); MCHC 32.1 g/dL (33-37); MCV 88.3 FL (81-99); MONO% 7.6 % (1.7-9.3); MPV 10.5 FL (7.4-10.4); NEUT% 70.1 % (42.2-75.2); PLT 275 X1000 (130-400); RBC 2.65 XMIL (4.2-5.4)
[2016-08-29] MEDS: SODIUM CHLORIDE 0.9% INJ SCH (06:01)
[2016-08-29] MEDS: PROTONIX IV SCH (06:01)
[2016-08-29 06:08] LABS: CALCIUM 9.3 mg/dL (8.8-10.2); MAGNESIUM 1.7 mg/dL (1.5-2.7); POTASSIUM 3.4 mmol/L (3.5-5.1)
[2016-08-29] MEDS: HUMULIN R SUBQ SCH ×5 (06:09→23:48)
[2016-08-29 06:12] LABS: IRON SATURATION 16 %; TIBC 221 ug/dL; TOTAL IRON 35 ug/dL (49-151); UNBOUND IRON 186 ug/dL (112-346)
[2016-08-29 06:36] LABS: FERRITIN 787 ng/mL (13-150)
[2016-08-29] MEDS: MORPHINE IV PRN (06:58)
--- NOTE | 2016-08-29 08:45 | Diag Imaging Result Document ---
PROCEDURE NAME: CHEST-1 VIEW - 08/29/2016 AP PORTABLE CHEST: TIME: 0620 hours. FINDINGS: There is cardiomegaly. The inspiration is slightly less optimal than on 08/28/2016, otherwise there has been no significant change. IMPRESSION: Stable chest.
[2016-08-29] MEDS: ZEBETA PO SCH (09:02)
[2016-08-29] MEDS: MIRALAX PO SCH (09:02)
--- NOTE | 2016-08-29 09:40 | PROGRESS NOTE ---
DATE: 08/29/2016 SUBJECTIVE: Ms. Pabon is awake, feels good. She is eating well. She is getting stronger. Breathing is comfortable. OBJECTIVE: Temperature 98.2 degrees, pulse 74, respirations 18, blood pressure 131/54. Yesterday, dialysis. She had 3000 output. Urine output looked like it was 350, maybe 650, in addition to 3000. Total output: Urine output is 3000 mL. She did have a little bit of urine output, maybe 350 mL. Lungs are clear in all lung bay. Cardiovascular: Regular rhythm and rate without murmur or S3. Abdomen is soft. Skin is warm and dry. Good urine output. LABORATORIES: From today, white count 7920, hematocrit 23, platelet count 275,000. Sodium 133, potassium 3.4, chloride 93, BUN 21, creatinine 4.0 which is down from 5.5 yesterday. There is a preliminary blood culture drawn yesterday. Total results are not back. White count is normal, and it was from one of the catheters. She is on vancomycin. ASSESSMENT AND PLAN: 1. Acute kidney injury/acute tubular necrosis overlying chronic kidney disease as a diabetic. Recent creatinine was 1.6. She will continue to dialyze in hopes that renal function is going to improve. We will need to get a tunnel catheter placed and the presumption that she may be a permanent stage 5 renal failure, following with diabetic neuropathy. 2. Hypertension. Blood pressure is doing well. 3. Anemia. Continue to follow. 4. Electrolytes and acid base, stable. 5. Status post respiratory failure, doing very well. REVIEW OF HER CULTURES: She did get gram positive cocci and that was collection from the port. There was no growth on the other blood culture from 08/27/2016 and there was one out of two that grew Escherichia coli from 08/17/2016. At the present time, her antibiotics. She is on vancomycin, and she is still getting Levaquin. REVIEW OF ORDERS: I do not see anything else I would change at this point.
--- NOTE | 2016-08-29 12:00 | PROGRESS NOTE ---
DATE: 08/29/2016 SUBJECTIVE: She is sitting up today. No shortness of breath. She was able to eat. OBJECTIVE: Vital Signs: Blood pressure 131/54, heart rate 74, respirations 18, afebrile. Urine output 450 mL. General: No acute distress. Skin: Warm and dry. Conjunctivae are pink. Neck: Neck veins are not visible in the erect position. Heart: Regular. Lungs: Have equal breath sounds. No crackles. Abdomen: Soft, nontender. Bowel sounds are present. Extremities: Have no edema, clubbing, or cyanosis. LABORATORY DATA: Sodium 133, potassium 3.4, chloride 93, bicarbonate 26, BUN 21, creatinine 4.0. Hemoglobin 7.5. IMPRESSION: 1. Acute kidney injury. No recovery thus far. We will observe without dialysis over the weekend. 2. Electrolytes: Modest hypokalemia that I will not address. 3. Positive blood culture. She received vancomycin. It was 1 bottle out of 2. Results pending.
[2016-08-29] MEDS: TYLENOL PO PRN (17:12)
[2016-08-29] MEDS: LEVAQUIN 250 MG/D5W 50 ML IV SCH (21:27)
[2016-08-29] MEDS: LOVENOX SUBQ SCH (21:27)
[2016-08-29] MEDS: MONISTAT-7 VAG CREAM VAG SCH (21:28)
[2016-08-30] MEDS: ZOFRAN IV PRN (03:19)
[2016-08-30 05:26] LABS: MANUAL DIFF NEEDED? NO
[2016-08-30] MEDS: PROTONIX IV SCH ×2 (05:55→06:32)
[2016-08-30] MEDS: SODIUM CHLORIDE 0.9% INJ SCH (05:55)
[2016-08-30] MEDS: HUMULIN R SUBQ SCH ×4 (06:01→20:32)
[2016-08-30 06:02] LABS: BASO% 0.4 % (0.0-0.8); EOS# 0.04 X1000 (0.0-0.7); EOS% 0.5 % (0.0-10.0); HEMATOCRIT 21.3 % (37.0-47.0); HEMOGLOBIN 6.9 g/dL (12.0-16.0); IMM GRAN# 0.17 X1000 (0.0-0.04); IMM GRAN% 2.3 % (0.0-0.5); LYMPH# 1.19 X1000 (1.2-3.4); MCH 28.6 PG (27-31); MCHC 32.4 g/dL (33-37); MCV 88.4 FL (81-99); MONO# 0.78 X1000 (0.11-0.59); MONO% 10.5 % (1.7-9.3); MPV 10.7 FL (7.4-10.4); NEUT% 70.3 % (42.2-75.2); PLT 267 X1000 (130-400); RBC 2.41 XMIL (4.2-5.4)
[2016-08-30 06:17] LABS: CALCIUM 9.7 mg/dL (8.8-10.2); MAGNESIUM 1.6 mg/dL (1.5-2.7); POTASSIUM 3.5 mmol/L (3.5-5.1)
--- NOTE | 2016-08-30 07:40 | PROGRESS NOTE ---
DATE: 08/30/2016 SUBJECTIVE: Ms. Pabon was sleeping comfortably, easy to arouse. No complaints. Feels good. Breathing comfortably. PHYSICAL EXAMINATION: Vital Signs: Temperature 98.1 degrees, pulse 87, respirations 18, blood pressure 151/69. Lungs: Are clear in all lung bay. Cardiovascular Examination: Regular rhythm and rate without murmur or S3. Abdomen: Soft. Skin: Is warm and dry. Is and Os: Weight 211 pounds. Urine output from yesterday about 670 mL recorded. LAB: White count 7430, hematocrit is 21, platelet count 267,000. Sodium 134, potassium 3.5, chloride 93, bicarb 26, BUN 30, creatinine 5.5, blood sugars 161, 164, 241. ASSESSMENT AND PLAN: 1. Acute kidney injury. No recovery thus far. Continue dialysis. 2. Anemia. Hemoglobin dropping. We will discuss with Dr. Vela. May want to give her a unit of blood while in dialysis. 3. Electrolytes and acid base. Stable. 4. Status post respiratory failure, doing well. Blood pressures looked good. 5. Review of orders. Still on vancomycin. Still on Levaquin. She had Staphylococcus epidermidis on 1 of 2 blood cultures. I believe this was from a port. Note, it was on oxacillin resistant Staphylococcus epidermis. We have her on vancomycin. Continue present orders.
--- NOTE | 2016-08-30 08:52 | Diag Imaging Result Document ---
PROCEDURE NAME: CHEST-1 VIEW - 08/30/2016 AP PORTABLE CHEST AT 0500 HOURS: FINDINGS: There is a double-lumen right internal jugular central venous catheter with its tip in the right atrium and a Port-A-Cath on the left with its tip in the right atrium. The inspiration is somewhat suboptimal. The heart size is enlarged. There is minimal atelectasis in both lung bases. IMPRESSION: Poor inspiration and bibasilar atelectasis. Cardiomegaly.
[2016-08-30] MEDS: MIRALAX PO SCH (08:55)
[2016-08-30] MEDS: ZEBETA PO SCH (08:55)
[2016-08-30] MEDS: LOVENOX SUBQ SCH (20:32)
[2016-08-30] MEDS: MONISTAT-7 VAG CREAM VAG SCH (20:32)
[2016-08-31 05:03] LABS: MANUAL DIFF NEEDED? NO
[2016-08-31] MEDS: SODIUM CHLORIDE 0.9% INJ SCH (05:38)
[2016-08-31] MEDS: PROTONIX IV SCH ×2 (05:38→07:17)
[2016-08-31] MEDS: HUMULIN R SUBQ SCH ×5 (05:42→20:56)
[2016-08-31 06:31] LABS: CALCIUM 9.8 mg/dL (8.8-10.2); MAGNESIUM 1.6 mg/dL (1.5-2.7); POTASSIUM 3.7 mmol/L (3.5-5.1)
[2016-08-31 06:55] LABS: BASO% 0.7 % (0.0-0.8); EOS# 0.05 X1000 (0.0-0.7); EOS% 0.9 % (0.0-10.0); HEMATOCRIT 23.4 % (37.0-47.0); HEMOGLOBIN 7.4 g/dL (12.0-16.0); IMM GRAN# 0.15 X1000 (0.0-0.04); IMM GRAN% 2.6 % (0.0-0.5); LYMPH# 1.57 X1000 (1.2-3.4); LYMPH% 27.3 % (20.5-51.1); MCHC 31.6 g/dL (33-37); MCV 88.6 FL (81-99); MONO# 0.51 X1000 (0.11-0.59); MONO% 8.9 % (1.7-9.3); MPV 10.2 FL (7.4-10.4); NEUT% 59.6 % (42.2-75.2); PLT 294 X1000 (130-400); RBC 2.64 XMIL (4.2-5.4)
[2016-08-31] MEDS ORDERED: TIGHT: 0.2 ML/HR MISC PRN (07:11)
[2016-08-31] MEDS ORDERED: NS 2,000 ML MISC PRN (07:11)
[2016-08-31] MEDS ORDERED: HEPARIN IV PRN (07:11)
--- NOTE | 2016-08-31 08:09 | Diag Imaging Result Document ---
PROCEDURE NAME: CHEST-1 VIEW - 08/31/2016 AP PORTABLE CHEST AT 0600 HOURS: FINDINGS: There is cardiomegaly. The lungs are better expanded than on 08/30/2016. Otherwise, there has been no significant change. IMPRESSION: Cardiomegaly.
--- NOTE | 2016-08-31 08:39 | PROGRESS NOTE ---
DATE: 08/31/2016 Ms. Pabon is sitting up in a chair. She feels good, much stronger, breathing comfortably. OBJECTIVE: Vital Signs: Temp 98.3 degrees, pulse 67, respirations 16, blood pressure 107/65. Lungs: Are clear anterior and posterior. Cardiovascular: Regular rhythm and rate without murmur or S3. Abdomen: Soft. Skin is warm and dry. Urine output from yesterday, 670 mL. LABORATORY: Today white count 5760, hematocrit 23, platelet count 294,000, electrolytes sodium 132, potassium 3.7, chloride 92, bicarb 21, BUN 37, creatinine 7.1, blood sugars 220, 237, 276. X- ray: Chest x-ray unremarkable except for cardiomegaly. Lungs are better expanded than the day before. Otherwise no significant change. ASSESSMENT AND PLAN: 1. Acute kidney injury. No recovery thus far. Continue dialysis. 2. Anemia. Hematocrit improved this morning. 3. Electrolytes and acid base looks good. 4. General weakness and deconditioning. Pursue rehab.
[2016-08-31] MEDS: MIRALAX PO SCH (09:27)
[2016-08-31] MEDS: ZEBETA PO SCH (09:27)
[2016-08-31] MEDS ORDERED: NS 2,000 ML ONE (10:04)
--- NOTE | 2016-08-31 15:13 | PROGRESS NOTE ---
DATE: 08/31/2016 SUBJECTIVE: She states she is feeling okay. Her appetite is improving. No shortness of breath. She states she is making urine. OBJECTIVE: Vital Signs: Blood pressure 157/90, heart rate 65, respirations 16, afebrile. Intake 500 mL. Output 550 mL. General: No acute distress. Skin: Warm and dry. Conjunctivae are pink. Oropharynx is moist. Neck: Neck veins are not appreciated. Heart: Regular without gallops. Lungs: Have equal breath sounds. No crackles. Abdomen: Obese and soft. Bowel sounds are present. Extremities: Have trace edema. No clubbing or cyanosis. LABORATORY DATA: Sodium 132, potassium 3.7, chloride 92, bicarbonate 21, BUN 37, creatinine 7.1, hemoglobin 7.4. IMPRESSION: 1. Acute kidney injury. No recovery thus far. Continued dialysis Wednesday, Wednesday, and Wednesday. 2. Electrolytes in target. 3. Acid-base in target. 4. Anemia. Hemoglobin remains low but does not meet criteria for transfusion.
[2016-08-31] MEDS: VANCOMYCIN 1 GM/NS 250 ML IV SCH (17:23)
[2016-08-31] MEDS: LOVENOX SUBQ SCH (20:56)
[2016-08-31] MEDS: MONISTAT-7 VAG CREAM VAG SCH (20:56)
[2016-08-31] MEDS: LEVAQUIN 250 MG/D5W 50 ML IV SCH (20:56)
[2016-09-01] MEDS: TYLENOL PO PRN ×2 (03:38→14:02)
[2016-09-01 05:00] LABS: MANUAL DIFF NEEDED? NO
[2016-09-01 05:09] LABS: BASO% 0.4 % (0.0-0.8); EOS# 0.03 X1000 (0.0-0.7); EOS% 0.6 % (0.0-10.0); HEMATOCRIT 21.1 % (37.0-47.0); HEMOGLOBIN 6.6 g/dL (12.0-16.0); IMM GRAN# 0.06 X1000 (0.0-0.04); IMM GRAN% 1.2 % (0.0-0.5); LYMPH% 27.2 % (20.5-51.1); MCH 28.2 PG (27-31); MCHC 31.3 g/dL (33-37); MCV 90.2 FL (81-99); MONO# 0.51 X1000 (0.11-0.59); MONO% 9.9 % (1.7-9.3); MPV 9.9 FL (7.4-10.4); NEUT% 60.7 % (42.2-75.2); PLT 274 X1000 (130-400); RBC 2.34 XMIL (4.2-5.4)
[2016-09-01 06:28] LABS: CALCIUM 8.7 mg/dL (8.8-10.2); MAGNESIUM 1.5 mg/dL (1.5-2.7); POTASSIUM 3.7 mmol/L (3.5-5.1)
[2016-09-01] MEDS: PROTONIX IV SCH (06:38)
[2016-09-01] MEDS: HUMULIN R SUBQ SCH ×4 (06:38→20:36)
--- NOTE | 2016-09-01 07:10 | PROGRESS NOTE ---
DATE: 08/29/2016 ADDENDUM: I want to recall on a CT of her abdomen on 08/17 there was an enlarged right upper quadrant retroperitoneal mass that remains indeterminate. So, we do need to follow up with that at some point. I will discuss with Dr. Vela.
--- NOTE | 2016-09-01 07:22 | Diag Imaging Result Document ---
PROCEDURE NAME: CHEST-1 VIEW - 09/01/2016 PORTABLE CHEST X-RAY: COMPARISON: 08/31/2016. FINDINGS: Stable bilateral central lines. Stable significant cardiomegaly and pulmonary vascular congestion. No new infiltrates. No pneumothorax or large effusion. IMPRESSION: No change from prior.
--- NOTE | 2016-09-01 08:55 | PROGRESS NOTE ---
DATE: 09/01/2016 SUBJECTIVE: Patient currently sitting up in a chair. She has no complaints this morning. She states that her swelling is better. OBJECTIVE: Vital Signs: Temperature 98.3 degrees, pulse 66, respiratory rate 16, blood pressure 135/53, intake 250 mL, output 1 L. Physical Examination: General: This is an elderly female, sitting up in a chair in no acute distress. She is awake and alert. HEENT: Normocephalic, atraumatic. Oral mucosa is moist. Conjunctivae pink. KWADWO. Neck: Supple. No JVD. Cardiovascular: Regular rate and rhythm. No gallop appreciated. Pulmonary: She has equal excursion. She is clear bilaterally with no increased work of breathing. Abdomen: Obese, soft, with positive bowel sounds. : Not inspected. She has minimal void with hemodialysis assist. Extremities: She has chronic upper right extremity edema, lymphedema. Lower extremities, she has trace pretibial edema which has significantly improved over the last several days. No clubbing or cyanosis. Integumentary: Skin is warm and dry without rash or lesion. She has a Port-A-Cath that is currently accessed to the left upper chest wall that is clean, dry, and intact. She has a Vas-Cath noted to the right IJ with dressing on there, no drainage. No erythema noted. Lab Data: WBC of 5.1, hemoglobin 6.6. Sodium 138, potassium 3.7, CO2 26, BUN 17, creatinine 4.2, calcium 8.7. She had blood cultures that were positive for gram-positive cocci. ASSESSMENT AND PLAN: 1. Acute kidney injury without recovery. We are continuing her dialysis on a Wednesday, Wednesday, Wednesday schedule. We have requested that she have her Vas-Cath replaced for a tunneled dialysis catheter. In light of her positive blood cultures, we may go ahead and pull that Vas- Cath today and have the tunneled dialysis catheter placed tomorrow. Further orders to follow. 2. Electrolytes, acid-base balance. These are acceptable. 3. Anemia. She continues to drop. Transfuse as warranted. Seen, data reviewed, discussed with Emma Ge on 09/01/16. I agree with the above assessment and plan of care. rg Dictated by NETTIE George for Sim Vela MD [facility]
[2016-09-01] MEDS: ZEBETA PO SCH (10:02)
[2016-09-01] MEDS: MIRALAX PO SCH (10:02)
--- NOTE | 2016-09-01 10:47 | PROGRESS NOTE ---
DATE: 09/01/2016 SUBJECTIVE: This patient states that she is feeling good. The family is at the bedside. The plan is to continue with dialysis Wednesday, Wednesday, and Wednesday. Probably the catheter that she is using at this moment is going to be pulled out after dialysis and then a new tunnel catheter is going to be placed. She has positive blood cultures. I will ask for new blood cultures today and probably after the new catheter placement. OBJECTIVE: Vital Signs: Temperature 98.3 degrees, pulse 66, respiratory rate 16, blood pressure 135/53, oxygen saturation 100% on room air. HEENT: Head normocephalic. No trauma. PERRLA. Neck: Supple. No JVD. No masses. Cardiovascular: RRR. No murmurs. No gallops. No rubs. Abdomen: Soft, nontender, nondistended. No hepatosplenomegaly. Extremities: No edema. No clubbing. LABORATORY: WBC 5, hemoglobin 6.6, platelets 274. Sodium 138, potassium 3.7, chloride 98, bicarbonate 26, BUN 17, creatinine 4.2, glucose 201, calcium 8.7. ASSESSMENT AND PLAN: 1. Acute kidney injury. No recovery thus far. We will continue with scheduled dialysis Wednesday, Wednesday, and Wednesday. The plan is to remove the catheter after dialysis and she will get any 1 afterwards. We will follow new cultures. 2. Anemia. Hemoglobin dropped to 6.6. I will ask for 1 PRBC today and I will ask for occult blood in the stool. 3. Type 2 diabetes, uncontrolled. We will adjust her medications. 4. Hypertension stable. Continue monitoring. 5. So far the plan is to continue with hemodialysis. Like I mentioned before, she will get and new tunnel catheter. In light of her positive blood cultures, I asked for blood cultures today and probably I will ask for blood cultures before or after the placement of the new catheter. liner worker is on board and looking for a rehab center once the patient is ready to be discharged. Hemoglobin and hematocrit today is low. She will get 1 unit of packed red blood cells. CRITICAL CARE TIME: 30 minutes. MTDD
[2016-09-01] MEDS ORDERED: NS 500 ML ONE (13:41)
[2016-09-01] MEDS: LOVENOX SUBQ SCH (20:35)
[2016-09-01] MEDS: MONISTAT-7 VAG CREAM VAG SCH (20:36)
[2016-09-01] MEDS: MORPHINE IV PRN (23:25)
[2016-09-02] MEDS: SODIUM CHLORIDE 0.9% INJ SCH (05:27)
[2016-09-02] MEDS: PROTONIX IV SCH ×2 (05:27→06:18)
[2016-09-02 05:41] LABS: MANUAL DIFF NEEDED? NO
[2016-09-02 05:48] LABS: BASO% 0.5 % (0.0-0.8); EOS# 0.05 X1000 (0.0-0.7); EOS% 0.9 % (0.0-10.0); HEMATOCRIT 25.1 % (37.0-47.0); IMM GRAN# 0.04 X1000 (0.0-0.04); IMM GRAN% 0.7 % (0.0-0.5); LYMPH# 1.43 X1000 (1.2-3.4); LYMPH% 25.6 % (20.5-51.1); MCH 28.3 PG (27-31); MCHC 31.9 g/dL (33-37); MCV 88.7 FL (81-99); MONO# 0.63 X1000 (0.11-0.59); MONO% 11.3 % (1.7-9.3); MPV 9.7 FL (7.4-10.4); PLT 285 X1000 (130-400); RBC 2.83 XMIL (4.2-5.4)
[2016-09-02 06:07] LABS: MAGNESIUM 1.5 mg/dL (1.5-2.7)
[2016-09-02 06:12] LABS: ALBUMIN 2.7 g/dL (3.5-5.0); CALCIUM 9.1 mg/dL (8.8-10.2); POTASSIUM 3.7 mmol/L (3.5-5.1)
[2016-09-02] MEDS: HUMULIN R SUBQ SCH ×4 (06:18→21:13)
--- NOTE | 2016-09-02 06:27 | CONSULTATION ---
DATE OF CONSULTATION: 09/02/2016 REQUESTING PHYSICIAN: Dr. Vela. REASON FOR CONSULTATION: Consult concerning placement of a tunneled hemodialysis catheter. HISTORY OF PRESENT ILLNESS: A 76-year-old, -Emirati female initially admitted on 08/16/2016 for altered mental status. She has since improved with that. During her course of stay, I was asked earlier to place a temporary dialysis catheter in her neck which I did while she was in the ICU without incident. She had been undergoing dialysis which she had been tolerating but it was felt by Dr. Vela that she would require more durable long-term access. I was asked to evaluate the patient for transitioning the temporary dialysis access to a more permanent dialysis access. The patient is without complaints right now. I did discuss extensively the procedure with the family and the patient at the bedside. No questions from the family. PAST MEDICAL HISTORY: Includes diabetes mellitus, hypertension, previous OR, cardiomegaly, lymphedema. PAST SURGICAL HISTORY: Mastectomy with lymph node resection, hysterectomy, right knee surgery. HOME MEDICATIONS: MAR reviewed. ALLERGIES: Reported to codeine and possible penicillin. SOCIAL HISTORY: Lives at home. No alcohol, tobacco, or illicit drugs. FAMILY HISTORY: Reviewed with patient but noncontributory. PHYSICAL EXAMINATION: Vital Signs: The patient is currently afebrile. Temperature 98.8 degrees, pulse is regular at 61, respiratory rate nonlabored at 18, blood pressure 152/79. General Examination: No acute distress. Alert, interactive, -Emirati female, looks stated age. HEENT: Normocephalic, atraumatic. Pupils equal, round, reactive to light. Mucous membranes moist. Oropharynx benign. Neck: Supple. Vas-Cath in place without signs of infection in the right jugular vein. Cardiovascular: Regular rate and rhythm. Lungs: Grossly clear. Abdomen: Soft, nontender, nondistended. Extremities: Moves all extremities. She does have some right upper extremity lymphedema. Skin: No signs of jaundice. Vascular: All extremities perfused. LABORATORY: Reviewed. Of note, patient's hematocrit is 25.1. Remainder of labs reviewed. She did have a previous INR which was not elevated. ASSESSMENT AND PLAN: A 76-year-old, -Emirati female with acute kidney injury without recovery. Acute kidney injury without recovery. At this time, we will transition the Vas-Cath for a tunneled hemodialysis catheter. Discussed the risks, benefits, and alternatives with the family and the patient. All questions were answered. We will schedule her for today.
--- NOTE | 2016-09-02 07:47 | Diag Imaging Result Document ---
PROCEDURE NAME: CHEST-1 VIEW - 09/02/2016 SINGLE FRONTAL RADIOGRAPH OF THE CHEST: COMPARISON: 09/01/2016. FINDINGS: Right PICC line and left chest port are in stable position. There is slight increased opacity at the left lower lung zone suggesting atelectasis most likely. Otherwise, no new consolidations are identified. Cardiac silhouette is stable. IMPRESSION: Slight increased plate-like opacity at the left lower lung zone likely representing mild atelectasis. Otherwise, stable.
[2016-09-02] MEDS ORDERED: EPOGEN SUBQ ONE (08:44)
--- NOTE | 2016-09-02 08:48 | PROGRESS NOTE ---
DATE: 09/02/2016 SUBJECTIVE: The patient currently is resting in bed. She has no complaints. She is to go to surgery later on this morning to have her Vas-Cath removed and a tunnel dialysis catheter placed. She will dialyze afterward. OBJECTIVE: Vital Signs: Temperature 98.8 degrees, pulse 61, respiratory rate 18, blood pressure 152/79. Intake 250 mL; output was not measured. General: On exam, elderly female resting in bed in no acute distress. Awake, alert, oriented x3. HEENT: Normocephalic, atraumatic. Her oral mucosa remains moist. Neck: Supple. No JVD noted. Cardiovascular: Regular rate and rhythm without murmur or gallop. Pulmonary: Equal excursion. She is clear bilaterally with no increased work of breathing. Abdomen: Obese, soft, with positive bowel sounds. : Not inspected. Extremities: Chronic upper extremity edema, lymphedema. Lower extremities with trace to 1+ pretibial edema. There is no clubbing or cyanosis. Integumentary: Skin is warm and dry without rash or lesion. Port-A-Cath continues access with no erythema or drainage noted. Vas- Cath remains to the right IJ with dressing intact. LAB DATA: WBC of 5.5, hemoglobin 8.0, hematocrit 25.1, platelet count 285. Sodium 131, potassium 3.7, CO2 24, BUN 5.2. ASSESSMENT AND PLAN: 1. Acute kidney injury without recovery. At this point we will have to assume she will not recover. Her creatinine bumped up a point yesterday with no dialysis. Patient will need to continue dialysis as an outpatient. This has been set up at the dialysis clinic here in [place]. The patient will go today for a tunneled dialysis catheter placement. She will dialyze thereafter. We will plan to run her on a 2 potassium/ultrafiltration as tolerated/4 hour treatment. 2. Electrolytes, acid-base balance. Acceptable. 3. Anemia. She had a blood transfusion yesterday at [facility]. Seen, data reviewed, discussed with Emma Ge on 09/02/16. I agree with the above assessment and plan of care. rg Dictated by NETTIE George for Sim Vela MD [facility]
[2016-09-02] MEDS: ZEBETA PO SCH (09:34)
[2016-09-02] MEDS: MIRALAX PO SCH (09:34)
[2016-09-02] MEDS: LANTUS SUBQ SCH (09:57)
[2016-09-02] MEDS ORDERED: XYLOCAINE 1% ONE (13:02)
[2016-09-02] MEDS ORDERED: HEPARIN ONE (13:02)
[2016-09-02] MEDS ORDERED: SENSORCAINE 0.25%/EPI 1:200,000 ONE (13:02)
[2016-09-02] MEDS ORDERED: NS 250 ML ONE (13:03)
[2016-09-02] MEDS ORDERED: FENTANYL ONE (13:05)
[2016-09-02] MEDS ORDERED: DIPRIVAN 1% ONE (13:05)
[2016-09-02] MEDS ORDERED: ZOFRAN ONE (14:54)
[2016-09-02] MEDS ORDERED: XYLOCAINE-MPF 2% ONE (14:54)
--- NOTE | 2016-09-02 15:07 | PROGRESS NOTE ---
DATE: 09/02/2016 SUBJECTIVE: This patient today is feeling good. She has no complaints. The family is at the bedside. The plan with her is to get a tunnel catheter today and then she will get her dialysis. Hopefully this patient will be able to be discharged tomorrow. She will continue with dialysis Wednesday, Wednesday, and Wednesday. OBJECTIVE: Vital Signs: Temperature 98.6 degrees, pulse 60, respiratory rate 18, blood pressure 190/97, oxygen saturation 100% on room air. HEENT: Head normocephalic. No trauma. PERRLA. Neck: Supple. No JVD. No masses. Cardiovascular: RRR. No murmurs. No gallops. No rubs. Abdomen: Soft, nontender, nondistended. No hepatosplenomegaly. Extremities: No edema. No clubbing. No cyanosis. Extremities: There is 1+ edema. No clubbing. No cyanosis. Neurological: The patient is alert. She is oriented x3. No focal neurological deficits. LABORATORY: WBC 5.5, hemoglobin 8, hematocrit 25.1, platelets 285,000. Sodium 131, potassium 3.7, chloride 93, bicarbonate 24, BUN 22, creatinine 5.2, glucose 202, calcium 9.1, magnesium 1.5. ASSESSMENT AND PLAN: 1. Acute kidney injury. No recovery thus far. We will continue with scheduled dialysis Wednesday, Wednesday, and Wednesday. Today she is getting hopefully the tunnel catheter and then dialysis afterwards. Tomorrow if we have a bed available in the rehab center. We will discharge this patient. 2. Anemia. Yesterday the hemoglobin dropped to 6.6. She received 1 PRBC and today the hemoglobin is much better. Will continue to monitor. 3. Type 2 diabetes, uncontrolled. I added Lantus 10 to her medications. Will monitor the blood sugar. 4. Hypertension. She is on bisoprolol. The blood pressure is still high. I will add a calcium channel musa. 5. Deconditioning. This patient hopefully will be discharged to a rehab center. The plan was discussed with the patient and with the family members.
[2016-09-02] MEDS ORDERED: NORCO-5 PO PRN (15:17)
--- NOTE | 2016-09-02 15:34 | OPERATIVE NOTE ---
PROCEDURE DATE: 09/02/2016 PREOPERATIVE DIAGNOSIS: End-stage renal disease. POSTOPERATIVE DIAGNOSIS: End-stage renal disease. PROCEDURES: Exchange of Vas-Cath for a tunneled hemodialysis catheter over wire with fluoroscopic guidance. SURGEON: Tye Figueroa MD. POTTERY KILN BUILDER: None. ANESTHESIA: General endotracheal. FINDINGS: Fluoroscopy shows the catheter in good position. COMPLICATIONS: None at the time of dictation. ESTIMATED BLOOD LOSS: 2 mL. BRIEF HISTORY: The patient is a 76-year-old female with placement of a Vas-Cath in her right neck approximately a week ago, and she needed a more durable long-term access. Therefore felt the patient would benefit for a tunneled dialysis catheter. The risks, benefits, and alternatives were discussed. She voiced understanding and wished to proceed with procedure. DESCRIPTION OF PROCEDURE: After informed consent was obtained, patient brought to the operative theatre, transferred to the operative table in supine position. General endotracheal anesthesia was then performed without complication. A formal time-out was then performed confirming patient, date, procedure. All were in agreement. At that time attention was given to the neck. The previous Vas-Cath was prepped and draped in the field. We placed a wire through this after the time-out, seen it going into the superior vena cava on fluoroscopy. Removed the Vas-Cath. Then created a tunneled hemodialysis catheter from the right chest wall to the neck, and exchanged over a wire and placed it in superior vena cava. Fluoroscopy showed the catheter in good position. We secured it in place in a standard fashion. The patient tolerated procedure well. All ports aspirated and flushed blood easily.
--- NOTE | 2016-09-02 15:54 | Diag Imaging Result Document ---
PROCEDURE NAME: CHEST-PORTABLE - 09/02/2016 PORTABLE CHEST X-RAY AT 1530 HOURS: COMPARISON: 0500 hours. FINDINGS: There has been catheter exchange on the right. The new dialysis catheter is in good position with the distal tip at the lower SVC. No pneumothorax or large effusion. Stable cardiomegaly and mild pulmonary vascular congestion. Stable left chest port. IMPRESSION: No acute disease or complication.
[2016-09-02] MEDS: LEVAQUIN 250 MG/D5W 50 ML IV SCH (21:20)
[2016-09-02] MEDS: PERIDEX MT SCH (21:20)
[2016-09-02] MEDS: LOVENOX SUBQ SCH (21:20)
[2016-09-02] MEDS: APRESOLINE PO SCH (21:29)
[2016-09-02] MEDS: MONISTAT-7 VAG CREAM VAG SCH (21:30)
[2016-09-03 05:50] LABS: MANUAL DIFF NEEDED? NO
[2016-09-03] MEDS ORDERED: TIGHT: 0.2 ML/HR MISC PRN (05:56)
[2016-09-03] MEDS ORDERED: NS 2,000 ML MISC PRN (05:56)
[2016-09-03] MEDS ORDERED: HEPARIN IV PRN (05:56)
[2016-09-03 05:59] LABS: BASO% 0.6 % (0.0-0.8); EOS# 0.11 X1000 (0.0-0.7); EOS% 2.2 % (0.0-10.0); HEMOGLOBIN 7.9 g/dL (12.0-16.0); IMM GRAN# 0.03 X1000 (0.0-0.04); IMM GRAN% 0.6 % (0.0-0.5); LYMPH# 1.28 X1000 (1.2-3.4); LYMPH% 25.8 % (20.5-51.1); MCH 27.9 PG (27-31); MCHC 31.6 g/dL (33-37); MCV 88.3 FL (81-99); MONO# 0.54 X1000 (0.11-0.59); MONO% 10.9 % (1.7-9.3); MPV 9.7 FL (7.4-10.4); NEUT% 59.9 % (42.2-75.2); PLT 289 X1000 (130-400); RBC 2.83 XMIL (4.2-5.4)
[2016-09-03 06:14] LABS: ALBUMIN 2.5 g/dL (3.5-5.0); CALCIUM 9.5 mg/dL (8.8-10.2); MAGNESIUM 1.5 mg/dL (1.5-2.7); POTASSIUM 3.6 mmol/L (3.5-5.1)
[2016-09-03] MEDS: HUMULIN R SUBQ SCH ×2 (06:29→12:03)
[2016-09-03] MEDS: PROTONIX IV SCH (06:44)
[2016-09-03] MEDS: SODIUM CHLORIDE 0.9% INJ SCH (06:44)
[2016-09-03 07:41] VITALS: BP 169/68
[2016-09-03] MEDS: PERIDEX MT SCH ×2 (07:49→12:02)
[2016-09-03] MEDS: LANTUS SUBQ SCH ×2 (07:49→12:01)
[2016-09-03] MEDS: MIRALAX PO SCH ×2 (07:49→12:02)
[2016-09-03] MEDS: ZEBETA PO SCH ×2 (07:49→12:02)
--- NOTE | 2016-09-03 07:53 | PROGRESS NOTE ---
DATE: 09/03/2016 SUBJECTIVE: No complaints. Lying flat. OBJECTIVE: Vital Signs: Blood pressure 116/54, heart rate 62, respiration 18, afebrile. Intake 450 mL. Output 775 mL. General: No acute distress. Skin: Warm and dry. Conjunctivae are pink. Neck: Neck veins are not distended. Heart: Regular without gallops. Lungs: Have equal breath sounds. No crackles. Abdomen: Soft and nontender. Bowel sounds present. Extremities: Have no edema, clubbing, or cyanosis. LABORATORY DATA: Sodium 135, potassium 3.6, chloride 96, bicarbonate 24, BUN 26, creatinine 6.2, hemoglobin 7.9. IMPRESSION: Acute kidney injury without recovery. Her renal failure has been present now for 3+ weeks. As such, we will have to presume that it is permanent. She had a tunneled catheter placed and we will dialyze her today. After that, I am ready for discharge. Her outpatient dialysis is arranged.
[2016-09-03] MEDS: APRESOLINE PO SCH (08:09)
[2016-09-03] MEDS ORDERED: NS 2,000 ML ONE (10:09)
[2016-09-03] MEDS ORDERED: HEPARIN ONE (10:10)
--- NOTE | 2016-09-03 13:40 | DISCHARGE SUMMARY ---
ADMISSION DATE: 08/16/2016 DISCHARGE DATE: 09/03/2016 CONSULTATIONS: Dr. Sim Vela with Nephrology; Dr. Joao Diego with Pulmonology; Dr. Tye Figueroa with General Surgery. PERTINENT PROCEDURES: 1. Abdomen and pelvis CT showed enlarging right upper quadrant retroperitoneal mass, mild rectal stool impaction, diverticulosis coli, trace retroperitoneal free fluid about the left kidney. 2. Head CT showed no hemorrhage, atrophy with chronic microvascular ischemic changes. 3. Renal ultrasound was a negative exam. 4. Ultrasound-guided placement of a right IJ venous catheter by Dr. Figueroa. 5. Exchange of Vas cath for tunneled hemodialysis catheter over wire with fluoroscopic guidance by Dr. Tye Figueroa. DISCHARGE DIAGNOSES: 1. Diabetic ketoacidosis resolved. 2. Severe dehydration resolved. 3. High ion gap metabolic acidosis due to diabetic ketoacidosis resolved. 4. Acute kidney injury on chronic kidney disease requiring hemodialysis. 5. Sepsis of unclear source. 6. Gram negative loni bacteremia. 7. Morbid obesity. Aware. 8. Altered mental status secondary to metabolic encephalopathy, resolving. 9. Hypertension, stable. 10. Suspected genital fungal infection. 11. Hypophosphatemia, resolved. 12. Hypernatremia, resolved with hemodialysis. 13. Dyslipidemia. 14. Diabetes mellitus uncontrolled. 15. Anemia of chronic disease. 16. Deconditioning. Patient being discharged to rehab. HOSPITAL COURSE: Ms. Pabon is a 76-year-old, female with history of diabetes, hypertension, dyslipidemia, questionable heart attack in the past. She was transferred from [facility] to [facility] after she presented there with altered mentation. According to the daughter she tried multiple times to reach her mom on the day of admission, so she went to check on her about 2 p.m. Upon arrival she saw her on the ground and she was unresponsive, but she had gurgling sounds in her throat. According to the daughter 1 eye was open and 1 eye was closed and the patient would not respond. 911 was called. At [facility] she was found to have a high blood sugar. They did some fluid resuscitation. Family requested transfer to [facility] for higher care. Patient was admitted to the ICU with altered mental status secondary to metabolic encephalopathy, diabetic ketoacidosis, placed on the DKA protocol. Blood and urine cultures were obtained. CT scan did not show anything acute. Patient was aggressively fluid resuscitated. Patient's electrolytes were replenished. Patient was also started on IV antibiotics. She was growing gram-negative, so they continued treatment with levofloxacin, cefepime and micafungin. Patient was alert but remained confused. She was nonverbal. She made some incomprehensible sounds. Upon physical examination, she groans when you touch her abdomen. She did undergo abdomen and pelvis CT that did show enlarging right upper quadrant retroperitoneal mass as well as a rectal stool impaction and trace retroperitoneal free fluid around the left kidney. Renal ultrasound was also obtained that did not show anything. Head CT was negative. Dr. Vela was consulted in reference to acute kidney injury with acidosis. He did discuss with the family that she had an acute kidney injury from ATN without recovery and she would likely need dialysis. The patient did get a central line placed by Dr. Tye Figueroa so she could undergo hemodialysis. The patient continued to have Kussmaul type breathing, continued to have dyspnea. Pulmonology was consulted in reference to patient's respiratory status. The patient's DKA resolved. She did appear to be fluid volume overload. The patient did have good urine output, but no improvement in her biochemical markers, persistent with metabolic acidosis. She meets criteria for dialysis. Again, a line was placed by Dr. Figueroa and then she did receive her first dose of hemodialysis after line placement and her respiratory status did improve. Volume status improved with hemodialysis. Her electrolytes were stable. Her neuro status was markedly improved. The patient was awake, alert, cooperative. She began physical therapy. She started oral intake. The patient did have a tunneled catheter placed because of her acute kidney injury without recovery. Her renal failure has been present now for 3+ weeks. Presume that it is permanent. She will have dialysis today. After that , she will be discharged home and her outpatient dialysis has been arranged with Dr. Vela. Her regular dialysis schedule will be Wednesday, Wednesday, Wednesday. The patient is being discharged to [facility] today. Vital signs at time of discharge, temperature 97.9 degrees, heart rate 60, respirations 16, blood pressure 169/68, O2 is 100% on room air. DISCHARGE MEDICATIONS: As per OCT. DISCHARGE DIET: Renal. FOLLOWUP: Patient can follow up with Dr. Rosie Ferguson after rehab. She will maintain her regular normal scheduled dialysis Wednesday, Wednesday, Wednesday. Patient can return to the ED for any worsening of symptoms. DISCHARGE TIME: 35 minutes. Dictated by NETTIE Hsu for Rip Jones MD MTDD
== END 2016-09-03 15:47 | DRG 871 ==
LOC: DIRADM 17:42 → ICU 17:50 → 3S 08-24 15:25 → 4N 09-01 18:49
PROVIDERS: ATTEND Internal Medicine
PROC: 5A1D60Z (ICD-10-PCS; principal; 2016-08-21)
PROC: 02HV33Z Insertion of Infusion Device into Superior Vena Cava, Percutaneous Approach (ICD-10-PCS; 2016-08-21)
PROC: B548ZZA Ultrasonography of Superior Vena Cava, Guidance (ICD-10-PCS; 2016-08-21)
PROC: 30233N1 Transfusion of Nonautologous Red Blood Cells into Peripheral Vein, Percutaneous Approach (ICD-10-PCS; 2016-09-01)
PROC: 02HV33Z Insertion of Infusion Device into Superior Vena Cava, Percutaneous Approach (ICD-10-PCS; 2016-09-02)
PROC: B5181ZA Fluoroscopy of Superior Vena Cava using Low Osmolar Contrast, Guidance (ICD-10-PCS; 2016-09-02)
DX: A41.4 Sepsis due to anaerobes (principal); E13.10 Other specified diabetes mellitus with ketoacidosis without coma; J96.90 Respiratory failure, unspecified, unspecified whether with hypoxia or hypercapnia; N17.0 Acute kidney failure with tubular necrosis; G93.41 Metabolic encephalopathy; B48.8 Other specified mycoses; E87.0 Hyperosmolality and hypernatremia; N39.0 Urinary tract infection, site not specified; I27.2 Other secondary pulmonary hypertension; R65.20 Severe sepsis without septic shock; E83.39 Other disorders of phosphorus metabolism; E87.70 Fluid overload, unspecified; E78.5 Hyperlipidemia, unspecified; I89.0 Lymphedema, not elsewhere classified; E11.319 Type 2 diabetes mellitus with unspecified diabetic retinopathy without macular edema; E66.01 Morbid (severe) obesity due to excess calories; N73.9 Female pelvic inflammatory disease, unspecified; E87.5 Hyperkalemia; B96.20 Unspecified Escherichia coli [E. coli] as the cause of diseases classified elsewhere; I51.7 Cardiomegaly; R19.01 Right upper quadrant abdominal swelling, mass and lump; G47.33 Obstructive sleep apnea (adult) (pediatric); E87.6 Hypokalemia; R91.8 Other nonspecific abnormal finding of lung field; K21.9 Gastro-esophageal reflux disease without esophagitis; M19.90 Unspecified osteoarthritis, unspecified site; E11.22 Type 2 diabetes mellitus with diabetic chronic kidney disease; I12.9 Hypertensive chronic kidney disease with stage 1 through stage 4 chronic kidney disease, or unspecified chronic kidney disease; N18.9 Chronic kidney disease, unspecified; D63.8 Anemia in other chronic diseases classified elsewhere; K56.41 Fecal impaction; Z68.32 Body mass index [BMI] 32.0-32.9, adult; Z83.3 Family history of diabetes mellitus; Z82.49 Family history of ischemic heart disease and other diseases of the circulatory system; I25.2 Old myocardial infarction; Z85.3 Personal history of malignant neoplasm of breast; Z92.21 Personal history of antineoplastic chemotherapy
CPT/HCPCS: 70450; 71010; 74000; 74176; 76770; 77001; 80048; 80053; 80061; 80069; 80076; 81001; 82009; 82040; 82270; 82378; 82550; 82553; 82570; 82607; 82728; 82746; 82805; 82947; 82948; 83036; 83540; 83550; 83605; 83735; 83930; 83935; 84100; 84156; 84300; 84443; 84540; 85025; 86301; 86704; 86706; 86850; 86900; 86901; 86920; 87040; 87077; 87088; 87186; 87205; 87340; 93005; 93010; 94761; 94762; 94799; C1725; C1750; C9113; G0480; J0360; J0692; J0885; J1630; J1644; J1650; J1940; J2060; J2248; J2270; J2405; J3010; J3370; J3480; J7030; J7040; J7050; J7060; P9016; 97001-GP; 97110-GP; 97116-GP; 97530-GP; S0164